=== PATIENT | female | born 1970 | race Caucasian/White ===

== ENCOUNTER → 2017-09-09 15:47 | Outpatient (CLI) | payer OTHER, SELFPAY | PROVIDERS: Visit Provider Otolaryngology Otolaryngology/Facial Plastic Surgery | DX: J32.9 Chronic sinusitis, unspecified (principal) | CPT/HCPCS: 87070; 87205 ==

== ENCOUNTER → 2018-03-10 09:48 | Outpatient (CLI) | payer OTHER, SELFPAY ==
[2018-03-10 12:23] LABS: Free T3 2.5 pg/mL (2.18-3.98); Progesterone Level 0.18 ng/mL (See Comment); T4 Free Direct 0.89 ng/dL (0.76-1.46); Thyroid Stim Hormone (TSH) 2.21 uIU/mL (0.358-3.74)
[2018-03-10 12:32] LABS: Hemoglobin A1c 5.7 % (4.2-6.3)
[2018-03-11 04:08] LABS: DHEA Sulfate 50.9 ug/dL (41.2-243.7)
[2018-03-11 11:32] LABS: Sex Hormone-binding Globulin 96.3 nmol/L (24.6-122.0)
== END ==
PROVIDERS: Family Provider Internal Medicine; PCP Internal Medicine; Referring Provider Obstetrics & Gynecology; Visit Provider Obstetrics & Gynecology
DX: Z78.0 Asymptomatic menopausal state (principal); N95.0 Postmenopausal bleeding
CPT/HCPCS: 36415; 82533; 82627; 82670; 83036; 84144; 84270; 84403; 84439; 84443; 84481; 82626

== ENCOUNTER → 2018-03-13 08:26 | Outpatient (CLI) | payer OTHER, SELFPAY ==
--- NOTE | 2018-03-13 08:32 | RAD_ITS ---
STUDY: X-RAY CHEST REASON FOR EXAM: Female, 47 years old. Dyspnea TECHNIQUE: Frontal and lateral views of the chest. COMPARISON: None. FINDINGS: The lungs are clear and expanded. There is no demonstrated pleural abnormality. Normal size heart. Normal mediastinum and iker. Normal visualized pulmonary arteries. Normal visualized aortic arch and descending thoracic aorta. Normal visualized thoracic spine. Normal visualized ribs, clavicles, and shoulders. There is no demonstrated abnormality of the visualized soft tissue structures of the upper abdomen. RAD/Chest PA and Lateral IMPRESSION: Normal x-ray examination of the chest. Electronically Signed: Ventura Felix MD at 15:19 EDT Tel , Service support ,
== END ==
PROVIDERS: Family Provider Internal Medicine; PCP Internal Medicine; Referring Provider Internal Medicine; Visit Provider Internal Medicine
DX: R06.02 Shortness of breath (principal)
CPT/HCPCS: 71046

== ENCOUNTER → 2018-04-03 12:13 | Outpatient (CLI) | payer OTHER, SELFPAY ==
--- NOTE | 2018-04-03 12:15 | BI_ITS ---
MAMMOGRAPHY - BILATERAL SCREENING REASON FOR EXAM: Female, 47 years old. Routine annual screening examination. PERTINENT HISTORY: Non-contributory. TECHNIQUE: Digital bilateral breast torres (3D mammographic acquisition) in the CC and MLO projections. 2-D mediolateral oblique (MLO) and craniocaudad (CC) views of both breasts were obtained. CAD: Full Field Digital Mammography with Computer Added Detection was performed. COMPARISON: Comparison is made with prior study dated March 31, 2017 and November 08, 2015. FINDINGS: Breast Composition: The breasts are heterogeneously dense, which may obscure small masses. There are no dominant masses or suspicious calcifications. Stable small bilateral axillary lymph nodes. No other significant abnormalities are identified. There has been no significant change since the prior study. BI/SCREENING MAMM (CAD), BILAT IMPRESSION: Stable bilateral screening mammogram. Yearly follow-up mammogram recommended. (A) ASSESSMENT CATEGORY: BIRADS Category 2: Benign. A letter regarding these results will be sent to the patient by the facility within 30 days. Approximately 10% of breast cancers are not detected by mammography. A normal mammogram should not delay biopsy of a clinically suspicious abnormality. [id number] Electronically Signed: Kai Barksdale MD at 13:42 EDT Tel [phone], Service support ,
== END ==
PROVIDERS: Family Provider Internal Medicine; PCP Internal Medicine; Referring Provider Internal Medicine; Visit Provider Internal Medicine
DX: Z12.31 Encounter for screening mammogram for malignant neoplasm of breast (principal)
CPT/HCPCS: 77063; 77067

== ENCOUNTER → 2018-06-26 13:37 | Outpatient (CLI) | payer SELFPAY ==
--- NOTE | 2018-06-26 13:48 | CT_ITS ---
STUDY: CT CHEST WITHOUT CONTRAST REASON FOR EXAM: Female, 48 years old. Hyperlipidemia. Calcium scoring exam. Radiological over read examination. RADIATION DOSAGE (If Supplied By Facility): CTDIvol = ( 12.19 ) mGy, DLP = ( 195.04 ) mGycm TECHNIQUE: Transaxial imaging was performed without the administration of intravenous contrast material. Individualized dose optimization techniques were used for this CT. COMPARISON: None. FINDINGS: The lungs are normal. There is no demonstrated pleural abnormality. Normal heart and pericardium. There are multiple small lymph nodes within the mediastinum, which are normal in size and morphology most compatible with reactive lymph hyperplasia. Normal hilar regions. Normal unenhanced pulmonary arteries. Normal aorta arch and descending thoracic aorta. Normal osseous structures. There is no demonstrated abnormality of the visualized upper abdomen. CT/Limited Chest CT w/CCTA IMPRESSION: Normal unenhanced CT Chest examination. Electronically Signed: Kai Barksdale MD at 15:06 EST Tel [phone], Service support ,
[2018-06-26 13:59] VITALS: BP 143/82; PULSE 69; RESP 18; O2SAT 97; BMI 34.0
--- NOTE | 2018-06-26 15:03 | CA.SCORE ---
Calcium Scoring Date of Study:: 06/26/18 Coronary Calcium Scoring: Coronary calcium scoring. High-resolution computed tomographic imaging of the chest was performed on 06/26/2018 with particular attention paid to the coronary arteries. Images from the examination were analyzed for the presence and extent of coronary artery calcification using the coronary calcium quantification software. The patient tolerated the procedure well and there were no complications. The results of the coronary calcification analysis were provided below along with [employer] sales representative cross-sectional images from the examination. Coronary artery score. Left main score of 0. Left anterior descending artery score 0. Left circumflex artery score 0. Right coronary artery score 0. Total calcium Agagston score 0. Interpretation: The above is indicative of minimal to no identifiable atherosclerotic plaquing.
--- OUTSIDE RECORDS SUMMARY | 2018-08-31 03:28 | XMS RPT_ITS | Continuity of Care Document ---
:1970 Author Organization [facility] Address [address] [facility] [address] [place] [address] Phone Care Team Providers Name Role Phone Cristy Escobedo MD Unavailable Dr. Adela Buckley MD Unavailable Chayito Rodrigueza Unavailable Unavailable Unavailable Unavailable Problems Name Dates Details Abnormal fasting glucose (R73.01, 790.29) Status: Active Bilateral hearing loss, unspecified hearing loss type (H91.93, 389.9) Comments: had since young wear hearing aides. Status: Active BMI 32.0-32.9,adult (Z68.32, V85.32) Status: Active BMI 33.0-33.9,adult (Z68.33, V85.33) Status: Active BMI 34.0-34.9,adult (Z68.34, V85.34) Status: Active Encounter for routine adult medical exam with abnormal findings (Renamed from Encounter for preventative adult health care exam with abnormal findings) (Z00.01, V70.0) Comments: [facility]-19 dental exam yearly, eye exam regularly, mammo 10-18. 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 wellbutrin help mood not help appetite. added naltrexone not take because so sick of contrave. do adipex for 3motnhs because work but gain back wieg ht in 3 months not enough time for lifestyle changend drop out exericse. Status: Active Other chronic sinusitis (J32.8, 473.8) Status: Active SOB (shortness of breath) (R06.02, 786.05) Comments: weird signs and symptoms vague start cxr not sound cardiac told signs and symptoms to ER Status: Active Stress reaction (Renamed from Acute reaction to stress) (F43.0, 308.9) Comments: right now doing sukhjinder mckenzie son diong better with anxiety Status: Active Vitamin D deficiency (E55.9, 268.9) Status: Active Weight gain (R63.5, 783.1) Comments: stop the large pulp Status: Active Medications Name Dates Details Crestor 20 MG Oral Tablet 1 (one) Tablet in am for 0 days Quantity: 90 {Tablet} Refills: 3 Ordered:23-Feb-2018 Gregg SPRINGER, Cristy Coker MD, Cristy Guerrero Start : 23-Feb-2018 Active Inderal LA 60 MG Oral Capsule Extended Release 24 Hour 1 (one) Capsule Capsule in am for 0 days Quantity: 30 {Capsule} Refills: 3 Ordered:19-Mar-2017 NORAH Dale Start : 19-Mar-2017 Active Prometrium 100 MG Oral Capsule 3 caps once a day at bedtime (100 MG) Active Comments:Dr. Ina Ellis 18 MG/3ML Subcutaneous Solution Pen-injector 1 (one) Milligram Milligram 0.6 mg SC daily for 1 week then 1.2 mg SC daily for 0 days Quantity: 1 {Syringe} Refills: 3 Ordered:12-Mar-2018 Edyta Rodriguez Start : 12-Mar-2018 Active Comments:with needles Vitamin D3 Super Strength 2000 UNIT Oral Capsule 1 (one) Capsule Capsule in am for 0 days Quantity: 30 {Capsule} Refills: 0 Ordered:24-Apr-2017 NORAH Dale Start : 19-Mar-2017 Active Wellbutrin XL 150 MG Oral Tablet Extended Release 24 Hour 1 (one) Tablet in am for 0 days Quantity: 30 {Tablet} Refills: 2 Ordered:14-Oct-2017 Gregg SPRINGER, Cristy Gonzales MD Start : 14-Oct-2017 Active Wellbutrin XL 150 MG Oral Tablet Extended Release 24 Hour 1 (one) Tablet in am for 0 days Quantity: 90 {Tablet} Refills: 3 Ordered:14-Oct-2017 Cristy Escobedo MD, MD, Dana M Start : 14-Oct-2017 Active Naltrexone HCl 50 MG Oral Tablet 1 (one) Tablet start 1/4 tablet at night for 5 days then bid then increase by 1/4 every 5 days to 1/2 bid for 0 days Quantity: 30 {Tablet} Refills: 1 Ordered:23-Dec-2017 NORAH Dale Start : 14-Oct-2017 End : 23-Dec-2017 Inactive Phentermine HCl 37.5 MG Oral Tablet 1 (one) Tablet in am for 0 days Quantity: 30 {Tablet} Refills: 0 Ordered:12-Mar-2018 NORAH Dale Start : 23-Dec-2017 End : 12-Mar-2018 Inactive Comments:thirtyBMI: 34.33 Allergies and Adverse Reactions Name Dates Details Penicillin V Potassium *PENICILLINS* Status: Active (Allergy) Comments: states it is a family allergy she has never used it Past Medical History Name Dates Details BMI 31.0-31.9,adult (Z68.31, V85.31) Status: Resolved as of 12-Mar-2018 BMI 32.0-32.9,adult (Z68.32, V85.32) Status: Resolved as of 15-Jun-2018 Encounter for screening mammogram for breast cancer (Renamed from Encounter for screening mammogram for malignant neoplasm of breast) (Z12.31, V76.12) Status: Resolved as of 26-May-2017 [place] (R23.2, 782.62) Status: Resolved as of 14-Oct-2017 Procedures Date Value Details 26-Jun-[address] w/CCTA Result: Comments: See Note; NOTES: [facility] Imaging Services [address] [place] [address] w/CCTA MR#: [id number] Acct: [id number] Name: DU SWANSON Rep #: [id number] : 1970 F 48 From: Kai Barksdale MD PCP: Cristy Escobedo MD Status: REG CLI Study: Limited Chest CT w/CCTA Date of Exam: 06/26/18 Exam# [id number] Ordering Dr: Cristy Escobedo MD STUD Y: CT CHEST WITHOUT CONTRAST REASON FOR EXAM: Female, 48 years old. Hyperlipidemia. Calcium scoring exam. Radiological over read examination. RADIATION DOSAGE (If Supplied By Facility): CTDIvol = ( 12 .19 ) mGy, DLP = ( 195.04 ) mGycm TECHNIQUE: Transaxial imaging was performed without the administration of intravenous contrast material. Individualized dose optimization techniques were used for thi s CT. COMPARISON: None. FINDINGS: The lungs are normal. There is no demonstrated pleural abnormality. Normal heart and pericardium. There are multiple small lymp h nodes within the mediastinum, which are normal in size and morphology most compatible with reactive lymph hyperplasia. Normal hilar regions. Normal unenhanced pulmonary arteries. Normal aorta arch and descending thoracic aorta. Normal osseous structures. There is no demonstrated abnormality of the visualized upper abdomen. CT/Limited Chest C T w/CCTA IMPRESSION: Normal unenhanced CT Chest examination. Electronically Signed: Kai Barksdale MD at 15:06 EST Tel [phone], Service support , CC: Cristy Escobedo MD Tool Room Attendant: Signed 22-Jun-2018 TXT - Blood Flow Screening Result: Comments: See Note; NOTES: [facility] Cardiovascular Services [address] [place] [address] 06/22/1805 MR#: [id number] Acct: [id number] Name: DU SWANSON Rep #: [id number] : 1970 48 From: Hernando Krishnan MD Attending Dr: Cristy Escobedo MD Status: REG REF Ordering Dr: Date: 06/22/18 Location: [facility] Sex: F C Admitted: Reason For Study: Blood Flow Screening C arotid Duplex Ultrasound Abdominal Aorta The right maximum ICA velocity is 106/39.3 cm/s. The maximal outside diameter of the proximal aorta The left maximum ICA velocity is 99.8/37.7 cm/s. measures 1.4 6 cm in the longitudinal axis. The right ECA velocity is less than 125 cm/s. The maximal outside diameter of the proximal aorta The left ECA velocity is less than 125 cm/s. measures 1.58 x 1.42 cm in th e cross-sectional There is no plaque formation noted on the right axis. side. There is no plaque formation noted on the left side. Ankle Brachial Index The right ankle/ brachial index is 1.05. The left ankle/ brachial index is 1.02. Medical History and Assessment The heart rate is 66 beats per minute. The heart rhythm is regular. The right blood pressure is 110/74. The left blood pressure is 110/76 . The assessment was performed by Kyle Cantrell RVT. Interpretation Summary Normal carotid artery screening (0 to 15% narrowing). Normal aortic ultrasound exam. The ankle/brachial index is normal (1.0 o r greater). Ordering Physician: Cristy Escobedo M.D. Performed By: Óscar NATHAN, Terese udent 06/22/182123 Date Hernando Krishnan MD CC: Cristy Escobedo MD Date Dictated: 804 Date Transcribed: 06/22/182123 Tool Room Attendant: Signed 22-Jun-2018 TXT - Blood Flow Screening Result: Comments: See Note; NOTES: [facility] Cardiovascular Services [address] [place] [address] 06/22/18804 MR#: [id number] Acct: [id number] Name: DU SWANSON Rep #: [id number] : 1970 48 From: Hernando Krishnan MD Attending Dr: Cristy Escobedo MD Status: REG REF Ordering Dr: Date: 06/22/18 Location: [facility] Sex: F C Admitted: Reason For Study: Blood Flow Screening C arotid Duplex Ultrasound Abdominal Aorta The right maximum ICA velocity is 106/39.3 cm/s. The maximal outside diameter of the proximal aorta The left maximum ICA velocity is 99.8/37.7 cm/s. measures 1.4 6 cm in the longitudinal axis. The right ECA velocity is less than 125 cm/s. The maximal outside diameter of the proximal aorta The left ECA velocity is less than 125 cm/s. measures 1.58 x 1.42 cm in th e cross-sectional There is no plaque formation noted on the right axis. side. There is no plaque formation noted on the left side. Ankle Brachial Index The right ankle/ brachial index is 1.05. The left ankle/ brachial index is 1.02. Medical History and Assessment The heart rate is 66 beats per minute. The heart rhythm is regular. The right blood pressure is 110/74. The left blood pressure is 110/76 . The assessment was performed by Kyle Cantrell RVT. Interpretation Summary Normal carotid artery screening (0 to 15% narrowing). Normal aortic ultrasound exam. The ankle/brachial index is normal (1.0 o r greater). Ordering Physician: Cristy Escobedo M.D. Performed By: Emy Cantrell RVT and St pond 06/22/182123 Date Hernando Krishnan MD CC: Cristy Escobedo MD Date Dictated: 804 Date Transcribed: 06/22/182123 Tool Room Attendant: Signed 03-Apr-2018 SCREENING MAMM (CAD), BILAT Result: Comments: See Note; NOTES: [facility] Imaging Services [address] [place] [address] SCREENING MAMM (CAD), BILAT MR#: [id number] Acct: [id number] Name: DU SWANSON Rep #: [id number] : 1970 F 47 From: Kai Barksdale MD PCP: Cristy Escobedo MD Status: REG CLI Study: SCREENING MAMM (CAD), BILAT Date of Exam: 04/03/18 Exam# [id number] Ordering Dr: Cristy Escobedo MAMMOGRAPHY - BILATERAL SCREENING REASON FOR EXAM: Female, 47 years old. Routine annual screening examination. PERTINENT HISTORY: Non-contributory. TECHNIQUE: Digital bilateral breast torres (3D ma mmographic acquisition) in the CC and MLO projections. 2-D mediolateral oblique (MLO) and craniocaudad (CC) views of both breasts were obtained. CAD: Full Field Digital Mammography with Computer Added D etection was performed. COMPARISON: Comparison is made with prior study dated March 31, 2017 and November 08, 2015. FINDINGS: Breast Composition: The breasts are heter ogeneously dense, which may obscure small masses. There are no dominant masses or suspicious calcifications. Stable small bilateral axillary lymph nodes. No other significant abnormalities are identif ied. There has been no significant change since the prior study. BI/SCREENING MAMM (CAD), BILAT IMPRESSION: Stable bilateral screening mammogram. Yearly follow-up mammogram recommended. (A) ASSESSMENT CATEGORY: BIRADS Category 2: Benign. A letter regarding these results will be sent to the patient by the fac ility within 30 days. Approximately 10% of breast cancers are not detected by mammography. A normal mammogram should not delay biopsy of a clinically suspicious abnormality. [id number] Electronically Sig adela: Kai Barksdale MD at 13:42 EDT Tel [phone], Service support , CC: Cristy Escobedo MD Tool Room Attendant: Signed 13-Mar-2018 Chest PA and Lateral Result: Comments: See Note; NOTES: [facility] Imaging Services [address] [place] [address] Chest PA and Lateral MR#: [id number] Acct: [id number] Name: DU SWANSON Rep #: [id number] : 1970 F 47 From: Ventura Felix MD PCP: Cristy Escobedo MD Status: REG CLI Study: Chest PA and Lateral Date of Exam: 03/13/18 Exam# [id number] Ordering Dr: Cristy Escobedo MD STUDY: X-RAY CH EST REASON FOR EXAM: Female, 47 years old. Dyspnea TECHNIQUE: Frontal and lateral views of the chest. COMPARISON: None. FINDINGS: The lungs are clear and expande d. There is no demonstrated pleural abnormality. Normal size heart. Normal mediastinum and iker. Normal visualized pulmonary arteries. Normal visualized aortic arch and descending thoracic aorta. Norm al visualized thoracic spine. Normal visualized ribs, clavicles, and shoulders. There is no demonstrated abnormality of the visualized soft tissue structures of the upper abdomen. RAD/Chest PA and Lateral IMPRESSION: Normal x-ray examination of the chest. Electronically Signed: Ventura Felix MD at 15:19 EDT Tel , Serv ice support , CC: Cristy Escobedo MD Tool Room Attendant: Signed 31-Mar-2017 SCREENING MAMM (CAD), BILAT Result: Comments: See Note; NOTES: [facility] Imaging Services [address] [place] [address] SCREENING MAMM (CAD), BILAT MR#: [id number] Acct: [id number] Name: DU SWANSON Rep # : [id number] : 1970 F 46 From: Kai Barksdale MD PCP: Cristy Escobedo MD Status: REG CLI Study: SCREENING MAMM (CAD), BILAT Date of Exam: 03/31/17 Exam# [id number] Ordering Dr: Cristy Escobedo MD MAMMOGRAPHY - BILATERAL SCREENING REASON FOR EXAM: Female, 46 years old. Routine annual screening examination. PERTINENT HISTORY: Non-contributory. TECHNIQUE: Digital bilateral breast torres (3D beckie mographic acquisition) in the CC and MLO projections. 2-D mediolateral oblique (MLO) and craniocaudad (CC) views of both breasts were obtained. CAD: Full Field Digital Mammography with Computer Added De tection was performed. COMPARISON: Comparison is made with prior study dated November 08, 2015 and July 21, 2014. FINDINGS: Breast Composition: The breasts are heter ogeneously dense, which may obscure small masses. There are no dominant masses or suspicious calcifications. Stable benign-appearing bilateral axillary lymph nodes. No other significant abnormalities are identified. There has been no significant change since the prior study. HPBI/SCREENING MAMM (CAD), BILAT IMPRESSION: Stable bilateral screeni ng mammogram. Yearly follow-up mammogram recommended. (A) ASSESSMENT CATEGORY: BIRADS Category 2: Benign. A letter regarding these results will be sent to the [facility] nt by the facility within 30 days. Approximately 10% of breast cancers are not detected by mammography. A normal mammogram should not delay biopsy of a clinically suspicious abnormality. [id number] Elect ronically Signed: Kai Barksdale MD at 9:54 EDT Tel [phone], Service support , CC: Cristy Escobedo MD Tool Room Attendant: Signed Family History Unknown Family Member Name Dates Details Father Comments: at 55 yo unknown estranged. 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 [place] in [place] area Status: Active Vital Signs Date Test Result Details :09 Weight 201.05 lb Height 64 in Body Mass Index Calculated 34.51 kg/m2 Body Surface Area Calculated 1.96 m2 :12 Temperature 97.8 f Comments: Method: Temporal Pulse 92 /min Comments: Pattern: Regular Respiration Rate 16 /min Comments: Pattern: Unlabored O2 SAT 97 % Comments: Room air BP Systolic 122 mm[Hg] Comments: Patient Position: Sitting; Cuff Location: Left Arm; Cuff Size: Standard BP Diastolic 78 mm[Hg] Comments: Patient Position: Sitting; Cuff Location: Left Arm; Cuff Size: Standard Weight 200.5 lb Height 64 in Body Mass Index Calculated 34.42 kg/m2 Body Surface Area Calculated 1.96 m2 :16 Temperature 97.9 f Comments: Method: Temporal Pulse 74 /min Comments: Pattern: Regular Respiration Rate 20 /min Comments: Pattern: Unlabored O2 SAT 98 % Comments: Room air BP Systolic 122 mm[Hg] Comments: Patient Position: Sitting; Cuff Location: Left Arm; Cuff Size: Standard BP Diastolic 78 mm[Hg] Comments: Patient Position: Sitting; Cuff Location: Left Arm; Cuff Size: Standard Weight 200 lb Height 64 in Body Mass Index Calculated 34.33 kg/m2 Body Surface Area Calculated 1.96 m2 :13 Temperature 97.6 f Comments: Method: Temporal Pulse 76 /min Comments: Pattern: Regular Respiration Rate 20 /min Comments: Pattern: Unlabored O2 SAT 98 % Comments: Room air BP Systolic 120 mm[Hg] Comments: Patient Position: Sitting; Cuff Location: Left Arm; Cuff Size: Standard BP Diastolic 80 mm[Hg] Comments: Patient Position: Sitting; Cuff Location: Left Arm; Cuff Size: Standard Weight 200 lb Height 64 in Body Mass Index Calculated 34.33 kg/m2 Body Surface Area Calculated 1.96 m2 :27 Temperature 97.6 f Comments: Method: Temporal Pulse 76 /min Comments: Pattern: Regular Respiration Rate 20 /min Comments: Pattern: Unlabored O2 SAT 98 % Comments: Room air BP Systolic 112 mm[Hg] Comments: Patient Position: Sitting; Cuff Location: Left Arm; Cuff Size: Standard BP Diastolic 72 mm[Hg] Comments: Patient Position: Sitting; Cuff Location: Left Arm; Cuff Size: Standard Weight 196 lb Height 64 in Body Mass Index Calculated 33.64 kg/m2 Body Surface Area Calculated 1.94 m2 :51 Temperature 96.9 f Pulse 71 /min Comments: Pattern: Regular Respiration Rate 18 /min Comments: Pattern: Unlabored O2 SAT 98 % Comments: Room air BP Systolic 118 mm[Hg] Comments: Patient Position: Sitting; Cuff Location: Left Arm; Cuff Size: Standard BP Diastolic 70 mm[Hg] Comments: Patient Position: Sitting; Cuff Location: Left Arm; Cuff Size: Standard Weight 191.5 lb Height 64 in Body Mass Index Calculated 32.87 kg/m2 Body Surface Area Calculated 1.92 m2 :29 Temperature 97.6 f Comments: Method: Temporal Pulse 78 /min Comments: Pattern: Regular Respiration Rate 20 /min Comments: Pattern: Unlabored O2 SAT 98 % Comments: Room air BP Systolic 110 mm[Hg] Comments: Patient Position: Sitting; Cuff Location: Left Arm; Cuff Size: Standard BP Diastolic 74 mm[Hg] Comments: Patient Position: Sitting; Cuff Location: Left Arm; Cuff Size: Standard Weight 187 lb Height 64 in Body Mass Index Calculated 32.1 kg/m2 Body Surface Area Calculated 1.9 m2 :15 Temperature 97.6 f Comments: Method: Temporal Pulse 74 /min Comments: Pattern: Regular Respiration Rate 20 /min Comments: Pattern: Unlabored O2 SAT 98 % Comments: Room air BP Systolic 120 mm[Hg] Comments: Patient Position: Sitting; Cuff Location: Left Arm; Cuff Size: Standard BP Diastolic 78 mm[Hg] Comments: Patient Position: Sitting; Cuff Location: Left Arm; Cuff Size: Standard Weight 186 lb Height 64 in Body Mass Index Calculated 31.93 kg/m2 Body Surface Area Calculated 1.9 m2 :20 Temperature 97.1 f Comments: Method: Oral Pulse 64 /min Comments: Pattern: Regular Respiration Rate 18 /min O2 SAT 95 % Comments: Room air BP Systolic 118 mm[Hg] Comments: Patient Position: Sitting BP Diastolic 78 mm[Hg] Comments: Patient Position: Sitting Weight 193 lb Height 64 in Body Mass Index Calculated 33.13 kg/m2 Body Surface Area Calculated 1.93 m2 Results Date Description Value Details :24 MICROALBUMIN: CREATININE RATIO Comments: PATIENT WAS FASTINGPERFORMED BY: [facility] [id number] [facility] [id number] ([id number]) AND ([id number]) Alb/Creat Ratio 2.3 {mg/g_creat} (Normal) Range: 0.0-30.0 Comments: Normal: 0.0 - 30.0 Albuminuria: 31.0 - 300.0 Clinical albuminuria: >300.0 Albumin, Urine 3.3 ug/mL (Normal) Creatinine, Urine 145.2 mg/dL (Normal) [id number]:24 URINALYSIS ([id number]) Comments: PATIENT WAS FASTINGPERFORMED BY: [id number] [facility] [id number] Microscopic Examination MICNIP (Normal) Comments: Microscopic not indicated and not performed. Nitrite, Urine Negative (Normal) Urobilinogen,Semi-Qn 0.2 mg/dL (Normal) Range: 0.2-1.0 Bilirubin Negative (Normal) Occult Blood Negative (Normal) Ketones Negative (Normal) Glucose Negative (Normal) Protein Negative (Normal) WBC Esterase Negative (Normal) Appearance Clear (Normal) Urine-Color Yellow (Normal) pH 7.0 (Normal) Range: 5.0-7.5 Specific [place] 1.021 (Normal) Range: 1.005-1.030 [id number] CBC WITH MANUAL DIFF Comments: PATIENT WAS FASTINGPERFORMED BY: [facility] [id number] [facility] [id number] Information: NURSE DRAW ([id number]) Immature Grans (Abs) 0.0 {x10E3/uL} (Normal) Range: 0.0-0.1 Immature Granulocytes 0 % (Normal) Baso (Absolute) 0.0 {x10E3/uL} (Normal) Range: 0.0-0.2 Eos (Absolute) 0.3 {x10E3/uL} (Normal) Range: 0.0-0.4 Monocytes(Absolute) 0.6 {x10E3/uL} (Normal) Range: 0.1-0.9 Lymphs (Absolute) 2.4 {x10E3/uL} (Normal) Range: 0.7-3.1 Neutrophils (Absolute) 5.2 {x10E3/uL} (Normal) Range: 1.4-7.0 Basos 0 % (Normal) Eos 3 % (Normal) Monocytes 7 % (Normal) Lymphs 28 % (Normal) Neutrophils 62 % (Normal) Platelets 326 {x10E3/uL} (Normal) Range: 150-379 RDW 13.3 % (Normal) Range: 12.3-15.4 MCHC 33.3 g/dL (Normal) Range: 31.5-35.7 MCH 28.7 pg (Normal) Range: 26.6-33.0 MCV 86 fL (Normal) Range: 79-97 Hematocrit 40.3 % (Normal) Range: 34.0-46.6 Hemoglobin 13.4 g/dL (Normal) Range: 11.1-15.9 RBC 4.67 {x10E6/uL} (Normal) Range: 3.77-5.28 WBC 8.5 {x10E3/uL} (Normal) Range: 3.4-10.8 [id number]:24 Metabolic Panel, Comprehensive Comments: PATIENT WAS FASTINGPERFORMED BY: [facility] [id number] [facility] [id number] ([id number]) ALT (SGPT) 18 [iU]/L (Normal) Range: 0-32 AST (SGOT) 21 [iU]/L (Normal) Range: 0-40 Alkaline Phosphatase 79 [iU]/L (Normal) Range: 39-117 Bilirubin, Total 0.3 mg/dL (Normal) Range: 0.0-1.2 A/G Ratio 1.6 (Normal) Range: 1.2-2.2 Globulin, Total 2.7 g/dL (Normal) Range: 1.5-4.5 Albumin 4.3 g/dL (Normal) Range: 3.5-5.5 Protein, Total 7.0 g/dL (Normal) Range: 6.0-8.5 Calcium 9.4 mg/dL (Normal) Range: 8.7-10.2 Carbon Dioxide, Total 21 mmol/L (Normal) Range: 20-29 Chloride 106 mmol/L (Normal) Range: 96-106 Potassium 4.7 mmol/L (Normal) Range: 3.5-5.2 Sodium 140 mmol/L (Normal) Range: 134-144 BUN/Creatinine Ratio 19 (Normal) Range: 9-23 eGFR If Africn Am 106 mL/min/1.73 (Normal) eGFR If NonAfricn Am 92 mL/min/1.73 (Normal) Creatinine 0.77 mg/dL (Normal) Range: 0.57-1.00 BUN 15 mg/dL (Normal) Range: 6-24 Glucose 102 mg/dL (Abnormal) Range: 65-99 2-Oct-64524:54 CORTISOL SERUM Comments: BASELINE OR POST MEDICATION STIMULATION?: [facility] [address] [place], [place], [id number] CORTISOL 11.00 ug/dL (Normal) Range: 3.09-22.40 Comments: Adult (AM) 4.30 - 22.40 ug/dL Adult (PM) 3.09 - 16.66 ug/dL :54 DHEA Sulfate Comments: Has Patient had Radioactive Injection for X-ray?: [facility] (refer to report for specific site)refer to report for address and phone number DHEA SULF 4020 50.9 ug/dL (Normal) Range: 41.2-243.7 :54 Estradiol Comments: [facility] [id number] [place], [place], [id number] ESTRADIOL 452.0 pg/mL (Normal) Comments: NORMAL REFERENCE RANGES FEMALE FOLLICULAR 21.4 - 164.8 pg/mL MID-CYCLE PEAK 49.9 - 367.2 pg/mL LUTEAL 40.2 - 259.0 pg/mL POST-MENOPAUSAL ON MHT <11.0 - 462.1 pg/mL NOT ON MHT <11.0 - 58.3 pg/mL MALE <11.0 - 52 .5 pg/mLNOTE:[employer] HAS CONFIRMED THE DRUG FULVETRANT (FASLODEX) MAYCAUSE FALSELY ELEVATED ESTRADIOL RESULTS WHEN USING THISTEST METHOD. IF PATIENT IS TAKING FULVESTRANT AN ALTERNATIVEMETHOD SHOULD BE USED TO DETERMINE ESTRADIOL CONCENTRATION. :54 Free T3 Comments: [facility] [id number] [place], [place], [phone] FREE T3 2.5 pg/mL (Normal) Range: 2.18-3.98 :54 Hemoglobin A1c Comments: [facility] [id number] [place], [address] HGB A1C 5.7 % (Normal) Range: 4.2-6.3 :54 Progesterone Level Comments: BASELINE OR POST MEDICATION STIMULATION?: [facility] [facility] [place] [id number] [facility] [place], [id number] Progesterone 0.18 ng/mL (Normal) Comments: Progesterone Reference Table: UNITS Female: Follicular 0.15 - 1.40 ng/mL Luteal 3.34 - 25.56 ng/mL Mid-luteal 4.44 - 28.03 ng/mL Postmenopausal 0.0 - 0.73 ng/mL : 1st Trimester 11.22 - 90.00 ng /mL 2nd Trimester 25.55 - 89.40 ng/mL 3rd Trimester 48.40 -422.50 ng/mL :54 Sex Hormone-binding Globulin Comments: Has Patient had Radioactive Injection for X-ray?: [facility] (refer to report for specific site)refer to report for address and phone number SHBG 96.3 nmol/L (Normal) Range: 24.6-122.0 Comments: Performed at: [address] [id number] Director: Mahendra Duarte PhD, Phone: [phone] :54 T4 Free Direct Comments: [facility] [id number] [facility]. [place], [place], [id number] T4 FREE DIRECT 0.89 ng/dL (Normal) Range: 0.76-1.46 :54 Testosterone, Serum Total Comments: BASELINE OR POST MEDICATION STIMULATION?: [facility] [place] [id number] [place], [place], [id number] Testosterone 19.84 ng/dL (Normal) Comments: NORMAL REFERENCE RANGES MALE AGE <50 123.06 - 813.86 ng/dL MALE AGE >50 89.98 - 780.10 ng/dL FEMALE PREMENOPAUSE AGE 21 - 60 9.01 - 47.94 ng/dL FEMALE POSTMENOPAUSE AGE 45 - 89 <7.00 - 45.62 ng/dL REFERENCE RANGE AND METHODOLOGY CHANGED 05/28/201710-Mar-20189:54 Thyroid Stim Hormone (TSH) Comments: [facility] [id number] [place], [place], [phone] TSH 2.21 {uIU/mL} (Normal) Range: 0.358-3.74 4-Zlb-767899:40 TSH (THYROID STIMULATING Comments: PATIENT NOT FASTINGPERFORMED BY: [facility] [id number] HORMONE) ([id number]) TSH 1.640 {uIU/mL} (Normal) Range: 0.450-4.500 3-Tlv-148843:40 ESTRADIOL ([id number]) Comments: PATIENT NOT FASTINGPERFORMED BY: [facility] [id number] Estradiol <5.0 pg/mL (Normal) Comments: Adult Female: Follicular phase 12.5 - 166.0 Ovulation phase 85.8 - 498.0 Luteal phase 43.8 - 211.0 Postmenopausal <6.0 - 54.7 1st trimester 215.0 - & gt;4300.0 Girls (1-10 years) 6.0 - 27.0Roche ECLIA methodology 3-Ucc-056416:40 PROLACTIN ([id number]) Comments: PATIENT NOT FASTINGPERFORMED BY: [facility] [id number] Prolactin 9.0 ng/mL (Normal) Range: 4.8-23.3 5-Fjv-489333:40 HCG Qualitative, Serum (31660) Comments: PATIENT NOT FASTINGPERFORMED BY: [facility] [id number] hCG,Beta Subunit,Qual,Serum Negative m[iU]/mL (Normal) 0-Ftb-192943:40 FSH AND LH ([id number]) Comments: PATIENT NOT FASTINGPERFORMED BY: [facility] [id number] FSH 90.2 m[iU]/mL (Normal) Comments: Adult Female: Follicular phase 3.5 - 12.5 Ovulation phase 4.7 - 21.5 Luteal phase 1.7 - 7.7 Postmenopausal 25.8 - 134.8 LH 58.0 m[iU]/mL (Normal) Comments: Adult Female: Follicular phase 2.4 - 12.6 Ovulation phase 14.0 - 95.6 Luteal phase 1.0 - 11.4 Postmenopausal 7.7 - 58.5 09-Sep-20179:15 Culture, Nose Comments: [facility] [id number] [place], [address] CUN See Note (Normal) Comments: Gram StainGram Stain No White Blood Cells No organisms seen Nasoph. CultNo growth in 48 hours. Plan of Care Name Dates Details Instructions Encounter for routine adult medical exam with abnormal findings (Renamed from Encounter for preventative adult health care exam with abnormal findings) : Eprescribed prescriptions (G8553) Indication: Encounter for routine adult medical exam with abnormal findings (Renamed from Encounter for preventative adult health care exam with abnormal findings) Nonsmoker : Eprescribed prescriptions (G8553) Indication: Nonsmoker Encounter for routine adult medical exam with abnormal findings (Renamed from Encounter for preventative adult health care exam with abnormal findings) : Eprescribed prescriptions (G8553) Indication: Encounter for routine adult medical exam with abnormal findings (Renamed from Encounter for preventative adult health care exam with abnormal findings) Planned Observations LIPOPROTEIN, BLD, BY NMR ([id number])Indication: Hypercholesteremia On: 19-Mox-782622:54 Request HEPATIC FUNCTION PANEL ([id number])Indication: Hypercholesteremia On: 39-Qbb-317147:54 Request CALCIFIDIOL ([id number]) VIT D 25Indication: Vitamin D deficiency On: 28-Xjz-094065:45 Request Planned Encounters Medical; INGEP Weight Check - On: 10-Jul-2018 9:00 [facility] NORAH Dale; ARACELI 6 Week FU - On: 24-Jul-2018 9:00 [facility] Gregg SPRINGER, Cristy Mauricio MD Medical; VIP Weight Check - On: 07-Aug-2018 9:00 [facility] NORAH Dale Planned Procedures TDAP VACCINE >7 IM ([id number])By: Gregg On: 12-Jun-2018 Intent Cristy SPRINGER MD, Dana M Comments: 0.5 cc given im lt dltd lot [id number] exp 03/13/19 MAMMOGRAM BREAST BILATERAL SCREENING On: 16-Mar-2018 Intent DIGITAL ([id number])By: Cristy Escobedo MD, MD, Dana M CHEST XRAY, PA & LATERAL ([id number])By: On: 12-Mar-2018 Intent Cristy Escobedo MD, MD, Cristy M Flu Vaccine (Quadrivalent) 09776Zf: On: 12-Mar-2018 Intent Cristy Escobedo MD, MD, Dana M Comments: Lot #:[id number] date: 3-78-10Inbdpq given:0.5mlRoute: IMSite given:L DltdGiven by: Dana and JOCELYNE signed [employer] SCREENING DIGITAL TOMOSYNTHESIS OF On: 19-Mar-2017 Intent BREAST ([id number])By: Cristy Escobedo MD, MD, Dana M Flu Vaccine (Quadrivalent) 18870Zq: On: 19-Mar-2017 Intent Cristy Escobedo MD, MD, Dana M Comments: Lot:[id number]:09/2017Dose:0.5mLRoute:IMSite:L DltdGiven By:SAQIB signed Instructions Name Dates Details Encounter for routine adult medical exam with abnormal findings (Renamed from Encounter for preventative adult health care exam with abnormal findings) : How to access health information online Indication: Encounter for routine adult medical exam with abnormal findings (Renamed from Encounter for preventative adult health care exam with abnormal findings) Encounter for routine adult medical exam with abnormal findings (Renamed from Encounter for preventative adult health care exam with abnormal findings) : How to access health information online - Detail Indication: Encounter for routine adult medical exam with abnormal findings (Renamed from Encounter for preventative adult health care exam with abnormal findings) Encounter for routine adult medical exam with abnormal findings (Renamed from Encounter for preventative adult health care exam with abnormal findings) : Patient Instructions Indication: Encounter for routine adult medical exam with abnormal findings (Renamed from Encounter for preventative adult health care exam with abnormal findings) Nonsmoker : How to access health information online Indication: Nonsmoker Nonsmoker : How to access health information online - Detail Indication: Nonsmoker Nonsmoker : Patient Instructions Indication: Nonsmoker BMI 34.0-34.9,adult : How to access health information online Indication: BMI 34.0-34.9,adult BMI 34.0-34.9,adult : How to access health information online - Detail Indication: BMI 34.0-34.9,adult BMI 34.0-34.9,adult : Patient Instructions Indication: BMI 34.0-34.9,adult BMI 33.0-33.9,adult : How to access health information online Indication: BMI 33.0-33.9,adult BMI 33.0-33.9,adult : How to access health information online - Detail Indication: BMI 33.0-33.9,adult BMI 33.0-33.9,adult : Patient Instructions Indication: BMI 33.0-33.9,adult Nonsmoker : How to access health information online Indication: Nonsmoker Nonsmoker : How to access health information online - Detail Indication: Nonsmoker Nonsmoker : Patient Instructions Indication: Nonsmoker BMI 32.0-32.9,adult : How to access health information online Indication: BMI 32.0-32.9,adult BMI 32.0-32.9,adult : How to access health information online - Detail Indication: BMI 32.0-32.9,adult BMI 32.0-32.9,adult : Patient Instructions Indication: BMI 32.0-32.9,adult BMI 31.0-31.9,adult : How to access health information online Indication: BMI 31.0-31.9,adult BMI 31.0-31.9,adult : How to access health information online - Detail Indication: BMI 31.0-31.9,adult BMI 31.0-31.9,adult : Patient Instructions Indication: BMI 31.0-31.9,adult Encounter for routine adult medical exam with abnormal findings (Renamed from Encounter for preventative adult health care exam with abnormal findings) : How to access health information online Indication: Encounter for routine adult medical exam with abnormal findings (Renamed from Encounter for preventative adult health care exam with abnormal findings) Encounter for routine adult medical exam with abnormal findings (Renamed from Encounter for preventative adult health care exam with abnormal findings) : How to access health information online - Detail Indication: Encounter for routine adult medical exam with abnormal findings (Renamed from Encounter for preventative adult health care exam with abnormal findings) Encounter for routine adult medical exam with abnormal findings (Renamed from Encounter for preventative adult health care exam with abnormal findings) : Patient Instructions Indication: Encounter for routine adult medical exam with abnormal findings (Renamed from Encounter for preventative adult health care exam with abnormal findings) Encounters Office Visit On: 26-Jun-2018 9:09 [facility] End: 29-Jun-2018 9:22 Office Visit On: 12-Jun-2018 7:49 Encounter Reason: Physical female exam - General health: feels well with minor complaints (would like to talk about weight), has good energy level and is sleeping well. The patient's appetite is normal. Nutrition: approp End: 19-Jun-2018 16:17 riate balanced diet. Exercises 0 days per week. Sleeps on average 6 (6.5/7 hrs) hours per night. Normal bowel and bladder habits. There are no current emotional problems. screening, colonoscopy (none yet).Encounter Diagnosis: BMI 34.0-34.9,adult, Nonsmoker, Encounter for routine adult medical exam with abnormal findings (Renamed from Encounter for preventative adult health care exam with abnormal findings), Weight gain, Other chronic sinusitis, Stress reaction (Renamed from Acute reaction to stress), History of Merritt's palsy, Bilateral hearing loss, unspecified hearing loss type, Vitamin D deficiency, SOB (shortness of breath), Encounter for screening mammogram for high-risk patient, Abnormal fasting glucose, History of amenorrhea, Hypercholesteremia, Obesity (BMI 30.0-34.9), BMI 32.0-32.9,adult, BMI 33.0-33.9,adult, Need for Tdap vaccination (Renamed from Need for ccfysjcmvg-qboltpr-zakphzgoa (Tdap) vaccine, adult/adolescent) [facility] Lab Order On: 28-Apr-2018 17:35 Encounter Diagnosis: Abnormal fasting glucose End: 28-Apr-2018 17:38 [facility] Phone Encounter On: 16-Mar-2018 8:39 Encounter Diagnosis: Encounter for screening mammogram for high-risk patient End: 16-Mar-2018 8:47 [facility] Office Visit On: 12-Mar-2018 14:15 Encounter Reason: Follow up acute care visit - The patient feels the same. Patient has been compliant with instructions. Current medication use: experiencing side effects (adipex kept her up at night). Patient sleeps 6 h End: 12-Mar-2018 14:53 ours per night. Impact of disease: emotional impact-mild. Nutrition: balanced diet and supplemental vitamins. The medical issues the patient is following up for include other (adipex check).Encounter Diagnosis: Obesity (BMI 30.0-34.9), Nonsmoker, Need for prophylactic vaccination and inoculation against influenza (Renamed from Need for immunization against influenza), Prediabetes, SOB (shortness of breath) [facility] Office Visit On: 23-Dec-2017 14:12 Encounter Reason: Adipex visit - Exercises 3 times per week. The patient's dietary intake is restricting calories.Encounter Diagnosis: BMI 34.0-34.9,adult, Nonsmoker, Obesity (BMI 30.0-34.9), Stress reaction (Renamed from Acute reaction to stress), End: 23-Dec-2017 15:01 History of amenorrhea [facility] Office Visit On: 14-Oct-2017 13:27 Encounter Reason: Follow up acute care visit - The patient feels the same. Current medication use: no side effects and compliant with dosing regimen. Patient sleeps 7 hours per night. Impact of disease: emotional impact- End: 14-Oct-2017 14:14 mild. Nutrition: balanced diet and supplemental vitamins. The medical issues the patient is following up for include other (weight/diet/exercise).Encounter Diagnosis: BMI 33.0-33.9,adult, Nonsmoker, Obesity (BMI 30.0-34.9), Hypercholesteremia, History of amenorrhea [facility] Office Visit On: 14-Aug-2017 8:45 Encounter Reason: Adipex visit - Exercises 0 (pt states she has put on weight since he last OV) times per week. The patient's dietary intake is no fast food and restricting calories.Encounter Diagnosis: Nonsmoker, Weight gain, BMI 32.0-32.9,adult, End: 14-Aug-2017 9:32 History of amenorrhea, Other chronic sinusitis, History of Merritt's palsy, Vitamin D deficiency, Bilateral hearing loss, unspecified hearing loss type, Obesity (BMI 30.0-34.9), Stress reaction (Renamed from Acute reaction to stress), Flushing, Hypercholesteremia, BMI 31.0-31.9,adult [facility] Office Visit On: 26-May-2017 13:16 Encounter Reason: Adipex visit - The patient's dietary intake is no fast food and restricting calories. other.Encounter Diagnosis: BMI 32.0-32.9,adult, Nonsmoker, Hypercholesteremia, Obesity (BMI 30.0-34.9), End: 26-May-2017 14:58 Stress reaction (Renamed from Acute reaction to stress) [facility] Office Visit On: 24-Apr-2017 14:14 Encounter Reason: Adipex visit - Exercises 0 times per week. The patient's dietary intake is restricting calories. other (Adipex).Encounter Diagnosis: BMI 31.0- 31.9,adult, Nonsmoker, Hypercholesteremia, Obesity (BMI 30.0-34.9) End: 24-Apr-2017 15:05 [facility] Office Visit On: 19-Mar-2017 13:14 Encounter Diagnosis: Encounter for routine adult medical exam with abnormal findings (Renamed from Encounter for preventative adult health care exam with abnormal findings), Nonsmoker, End: 21-Mar-2017 6:58 Need for prophylactic vaccination and inoculation against influenza (Renamed from Need for immunization against influenza), Other chronic sinusitis, Hypercholesteremia, Obesity (BMI 30.0-34.9), Encounter for screening mammogram for breast cancer (Renamed from Encounter for screening mammogram for malignant neoplasm of breast), History of amenorrhea, Vitamin D deficiency, Bilateral hearing loss, unspecified hearing loss type, Flushing, History of Merritt's palsy [facility] Office Visit On: 31-Dec-2016 8:44 [facility] End: 31-Dec-2016 11:41 Payers Billy SWANSON; bryce guarantor
--- OUTSIDE RECORDS SUMMARY | 2018-08-31 03:28 | XMS RPT_ITS | Continuity of Care Document ---
:1970 Author Organization [facility] Address [address] [facility] [address] [place] [address] Phone Care Team Providers Name Role Phone [...] for Tdap vaccination (Renamed from Need for uwlsjmiiqx-akehpzn-wnuyqecle (Tdap) vaccine, adult/adolescent) (Z23, V06.1) Status: Active [...] as of 14-Oct-2017 Procedures Date Value Details 03-Apr-2018 SCREENING MAMM (CAD), BILAT Result: Comments: See Note; NOTES: [facility] Imaging Services [address] [place] [address] SCREENING MAMM (CAD), BILAT MR#: [id number] Acct: [id number] Name: DU SWANSON Rep #: [id number] : 1970 F 47 From: Kai Barksdale MD PCP: Cristy Escobedo MD Status: REG CLI Study: SCREENING MAMM (CAD), BILAT Date of Exam: 04/03/18 Exam# [id number] Ordering Dr: Cristy Escobedo MAMMOGRAPHY - BILATERAL [...] be sent to the patient by the [facility] within 30 days. Approximately 10% of breast cancers are not detected by mammography. A normal mammogram should not delay biopsy of a clinically suspicious abnormality. [id number] Electronically Sig adela: Kai Barksdale MD at 13:42 EDT Tel [phone], Service support , CC: Cristy Escobedo MD Motion Picture Critic: Signed 13-Mar-2018 Chest PA and Lateral Result: Comments: See Note; NOTES: [facility] Imaging Services [address] [place] [address] Chest PA and Lateral MR#: [id number] Acct: [id number] Name: DU SWANSON Rep #: [id number] : 1970 F 47 From: Ventura Felix MD PCP: Cristy Escobedo MD Status: REG CLI Study: Chest PA and Lateral Date of Exam: 03/13/18 Exam# [id number] Ordering Dr: Cristy Escobedo MD STUDY: X-RAY [...] ice support , CC: Cristy Escobedo MD Motion Picture Critic: Signed 31-Mar-2017 SCREENING MAMM (CAD), BILAT Result: Comments: See Note; NOTES: [facility] Imaging Services [address] [place] [address] SCREENING MAMM (CAD), BILAT MR#: [id number] Acct: [id number] Name: DU SWANSON Rep # : [id number] : 1970 F 46 From: Kai Barksdale MD PCP: Cristy Escobedo MD Status: REG CLI Study: SCREENING MAMM (CAD), BILAT Date of Exam: 03/31/17 Exam# [id number] Ordering Dr: Cristy Escobedo MD MAMMOGRAPHY - [...] [facility] within 30 days. Approximately 10% of breast cancers are not detected by mammography. A normal mammogram should not delay biopsy of a clinically suspicious abnormality. [id number] Elect ronically Signed: Kai Barksdale MD at 9:54 EDT Tel [phone], Service support , CC: Cristy Escobedo MD Motion Picture Critic: Signed Family History Unknown Family Member Name [...] and twin boys born 2006. 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: Active Vital Signs Date Test Result Details :12 Temperature 97.8 f Comments: Method: Temporal [...] kg/m2 Body Surface Area Calculated 1.9 m2 88-Tew-881706:20 Temperature 97.1 f Comments: Method: Oral Pulse 64 /min Comments: Pattern: Regular Respiration Rate 18 /min O2 SAT 95 % Comments: Room air BP Systolic 118 mm[Hg] Comments: Patient Position: Sitting BP Diastolic 78 mm[Hg] Comments: Patient Position: Sitting Weight 193 lb Height 64 in Body Mass Index Calculated 33.13 kg/m2 Body Surface Area Calculated 1.93 m2 Results Date Description Value Details 34-Vuo-114315:24 MICROALBUMIN: CREATININE RATIO Comments: PATIENT WAS FASTINGPERFORMED BY: [facility] [id number] ([id number]) AND (74502) Alb/Creat Ratio 2.3 {mg/g_creat} (Normal) Range: 0.0-30.0 Comments: Normal: 0.0 - 30.0 Albuminuria: 31.0 - 300.0 Clinical albuminuria: >300.0 Albumin, Urine 3.3 ug/mL (Normal) Creatinine, Urine 145.2 mg/dL (Normal) 64-Joa-315099:24 URINALYSIS ([id number]) Comments: PATIENT WAS FASTINGPERFORMED BY: [employer] [facility] [id number] Microscopic Examination MICNIP (Normal) Comments: Microscopic not indicated and not performed. Nitrite, Urine Negative (Normal) Urobilinogen,Semi-Qn 0.2 mg/dL (Normal) Range: 0.2-1.0 Bilirubin Negative (Normal) Occult Blood Negative (Normal) Ketones Negative (Normal) Glucose Negative (Normal) Protein Negative (Normal) WBC Esterase Negative (Normal) Appearance Clear (Normal) Urine-Color Yellow (Normal) pH 7.0 (Normal) Range: 5.0-7.5 Specific [place] 1.021 (Normal) Range: 1.005-1.030 :24 CBC WITH MANUAL DIFF Comments: PATIENT WAS FASTINGPERFORMED BY: [employer] [facility] [id number] Information: NURSE DRAW ([id number]) Immature Grans (Abs) 0.0 {x10E3/uL} (Normal) Range: [...] 3.77-5.28 WBC 8.5 {x10E3/uL} (Normal) Range: 3.4-10.8 00-Ice-438853:24 Metabolic Panel, Comprehensive Comments: PATIENT WAS FASTINGPERFORMED BY: [facility] [id number] ([id number]) ALT (SGPT) 18 [iU]/L (Normal) Range: 0-32 [...] 6-24 Glucose 102 mg/dL (Abnormal) Range: 65-99 :54 CORTISOL SERUM Comments: BASELINE OR POST MEDICATION STIMULATION?: [facility] [address] [place], [address] CORTISOL 11.00 ug/dL (Normal) Range: 3.09-22.40 Comments: Adult (AM) 4.30 - 22.40 ug/dL Adult (PM) 3.09 - 16.66 ug/dL :54 DHEA Sulfate Comments: Has Patient had Radioactive Injection for X-ray?: [facility] (refer to report for specific site)refer to report for address and phone number DHEA SULF 4020 50.9 ug/dL (Normal) Range: 41.2-243.7 :54 Estradiol Comments: [facility] [address] [facility] [place], [address] ESTRADIOL 452.0 pg/mL (Normal) Comments: NORMAL REFERENCE [...] DETERMINE ESTRADIOL CONCENTRATION. :54 Free T3 Comments: [facility] [address] [facility] [address] [place], [place], [phone] FREE T3 2.5 pg/mL (Normal) Range: 2.18-3.98 :54 Hemoglobin A1c Comments: [facility] [address] [place], [address] HGB A1C 5.7 % (Normal) Range: 4.2-6.3 :54 Progesterone Level Comments: BASELINE OR POST MEDICATION STIMULATION?: [facility] [address] [place], [place], [id number] Progesterone 0.18 ng/mL (Normal) Comments: Progesterone Reference [...] nmol/L (Normal) Range: 24.6-122.0 Comments: Performed at: [address] [id number] Director: Mahendra Duarte PhD, Phone: [phone] :54 T4 Free Direct Comments: [facility] [address] [place], [place], [address] T4 FREE DIRECT 0.89 ng/dL (Normal) Range: 0.76-1.46 :54 Testosterone, Serum Total Comments: BASELINE OR POST MEDICATION STIMULATION?: [facility] [address] [place], [id number] Testosterone 19.84 ng/dL (Normal) Comments: NORMAL REFERENCE RANGES MALE AGE <50 123.06 - 813.86 ng/dL MALE AGE >50 89.98 - 780.10 ng/dL FEMALE PREMENOPAUSE AGE 21 - 60 9.01 - 47.94 ng/dL FEMALE POSTMENOPAUSE AGE 45 - 89 <7.00 - 45.62 ng/dL REFERENCE RANGE AND METHODOLOGY CHANGED 05/28/201710-Mar-20189:54 Thyroid Stim Hormone (TSH) Comments: [facility] [address] [place], [id number] TSH 2.21 {uIU/mL} (Normal) Range: 0.358-3.74 6-Kod-432205:40 TSH (THYROID STIMULATING Comments: PATIENT NOT FASTINGPERFORMED BY: [employer] [facility] [id number] HORMONE) (41066) TSH 1.640 {uIU/mL} (Normal) Range: 0.450-4.500 4-Tnr-061240:40 ESTRADIOL (08699) Comments: PATIENT NOT FASTINGPERFORMED BY: [facility] [address] [facility] [id number] Estradiol <5.0 pg/mL (Normal) Comments: Adult Female: Follicular phase 12.5 - 166.0 Ovulation phase 85.8 - 498.0 Luteal phase 43.8 - 211.0 Postmenopausal <6.0 - 54.7 1st trimester 215.0 - & gt;4300.0 Girls (1-10 years) 6.0 - 27.0Roche ECLIA methodology :40 PROLACTIN (76577) Comments: PATIENT NOT FASTINGPERFORMED BY: [facility] [address] [facility] [id number] Prolactin 9.0 ng/mL (Normal) Range: 4.8-23.3 9-Zxs-894814:40 HCG Qualitative, Serum (41349) Comments: PATIENT NOT FASTINGPERFORMED BY: [facility] DoverDmrshy8501 [facility] [id number] hCG,Beta Subunit,Qual,Serum Negative m[iU]/mL (Normal) 5-Udo-897275:40 FSH AND LH (40886) Comments: PATIENT NOT FASTINGPERFORMED BY: [facility] DoverGloxhb4026 [facility] [id number] FSH 90.2 m[iU]/mL (Normal) Comments: Adult Female: Follicular phase 3.5 - 12.5 Ovulation phase 4.7 - 21.5 Luteal phase 1.7 - 7.7 Postmenopausal 25.8 - 134.8 LH 58.0 m[iU]/mL (Normal) Comments: Adult Female: Follicular phase 2.4 - 12.6 Ovulation phase 14.0 - 95.6 Luteal phase 1.0 - 11.4 Postmenopausal 7.7 - 58.5 09-Sep-20179:15 Culture, Nose Comments: [facility] [address] [place], [address] CUN See Note (Normal) Comments: Gram StainGram [...] findings) Planned Observations LIPOPROTEIN, BLD, BY NMR (11680)Indication: Hypercholesteremia On: 43-Zyj-695025:54 Request HEPATIC FUNCTION PANEL (61843)Indication: Hypercholesteremia On: 84-Bcp-812133:54 Request CALCIFIDIOL (09496) VIT D 25Indication: Vitamin D deficiency On: 84-Vyt-162058:45 Request Planned Encounters Medical; ARACELI Weight Check - On: 26-Jun-2018 9:00 [facility]; VIJose Weight Check - On: 10-Jul-2018 9:00 [facility] [place]; INGEP 6 Week FU - On: 24-Jul-2018 9:00 [facility] Gregg SPRINGER, Cristy Mauricio MD Medical; ARACELI Weight Check - On: 07-Aug-2018 9:00 [facility] [place] Planned Procedures TDAP VACCINE >7 IM (18181)By: Gregg On: 12-Jun-2018 Intent Cristy SPRINGER MD, Dana M Comments: 0.5 cc given im lt dltd lot 42PT4 exp 03/13/19 MAMMOGRAM BREAST BILATERAL SCREENING On: 16-Mar-2018 Intent DIGITAL (72344)By: Cristy Escobedo MD, MD, Dana M CHEST XRAY, PA & LATERAL (61543)By: On: 12-Mar-2018 Intent Cristy Escobedo MD, MD, Dana M Flu Vaccine (Quadrivalent) 98006Ul: On: 12-Mar-2018 Intent Cristy Escobedo MD, MD, Dana M Comments: Lot #:[id number] date: 1-03-60Gyaxuf given:0.5mlRoute: IMSite given:L DltdGiven by: Dana and JOCELYNE signed [employer] SCREENING DIGITAL TOMOSYNTHESIS OF On: 19-Mar-2017 Intent BREAST ([id number])By: Cristy Escobedo MD, MD, Dana M Flu Vaccine (Quadrivalent) 32812Xf: On: 19-Mar-2017 Intent Cristy Escobedo MD, MD, [...] with abnormal findings) Encounters Office Visit On: 12-Jun-2018 7:49 Encounter Reason: [...] for Tdap vaccination (Renamed from Need for cwhuhgzimt-uitctpt-ooinpayiq (Tdap) vaccine, adult/adolescent) [facility] Lab [...] 8:44 [facility] End: 31-Dec-2016 11:41 Paynam SWANSON; a guarantor
--- OUTSIDE RECORDS SUMMARY | 2018-08-31 03:29 | XMS RPT_ITS ---
:1970 Author Organization OHIP Support Name Relationship Address Phone BREANNE SWANSON Unavailable [address] + [place] [address] + [place] [address] KIKI BREANNE Unavailable [address] + [place] [address] + [place] [address] BREANNE SWANSON Unavailable [address] [place] [address] CT + [place] [address] + [place] [address] BREANNE SWANSON Unavailable [address] [place] [address] CT + [place] [address] + [place] [address] BREANNE SWANSON Unavailable [facility] + [place] [address] + [place] [address] BREANNE SWANSON Unavailable [address] [place] [address] CT + [place] [address] + [place] [address] BREANNE SWANSON Unavailable [address] [place] [address] CT + [place] [address] + [place] [address] Care Team Providers Name Role Phone Cristy Escobedo MD Attending Unavailable Cristy Escobedo MD Referring Unavailable Cristy Escobedo MD Consulting Unavailable Cristy Escobedo Attending Unavailable Cristy Escobedo Referring Unavailable Bonezzi, Cristy Primary Care Unavailable Bonezzi, Cristy Attending Unavailable Bonezzi, Cristy Referring Unavailable Bonezzi, Cristy Primary Care Unavailable Bonezzi, Cristy Attending Unavailable Bonezzi, Cristy Referring Unavailable Bonezzi, Cristy Primary Care Unavailable Evangelista, Sumeet Attending Unavailable Bonezzi, Cristy Referring Unavailable Bonezzi, Cristy Primary Care Unavailable Bonezzi, Cristy Consulting Unavailable Bonezzi, Cristy Attending Unavailable Bonezzi, Cristy Referring Unavailable Bonezzi, Cristy Primary Care Unavailable Shriner, Kia Attending Unavailable Shriner, Kia Referring Unavailable Bonezzi, Cristy Primary Care Unavailable Elizabeth, Keith Attending Unavailable Bonezzi, Cristy Primary Care Unavailable Elizabeth, Keith Referring Unavailable PROBLEMS PROBLEMS DATE TYPE CONDITION / CODE ATTENDING STATUS SOURCE 04/03/2018 Unknown Z12.31 - Cristy Escobedo Active [place] Encounter for [facility] mammogram for Repository malignant neoplasm of breast / Z12.31(ICD-10) 03/13/2018 Unknown R06.02 - Cristy Escobedo Active [place] Shortness of [facility] breath / Hospital R06.02(ICD-10) Repository PROCEDURES PROCEDURES No Procedure Records FoundRESULTS RESULTS LIMITED CHEST CT Observed: 06/26/2018 Status: F Source: [place] W/CCTA 1:48 PM [facility] REPOSITORY [facility] Imaging Services [address] [place] [address] w/CCTA MR#: [id number] Acct: [id number] Name: DU SWANSON Rep #: [id number] : 1970 F 48 From: Kai Barksdale MD PCP: Cristy Escobedo MD Status: REG CLI Study: Limited Chest CT w/CCTA Date of Exam: 06/26/18 Exam# [id number] Ordering Dr: Cristy Escobedo MD STUDY: CT CHEST WITHOUT CONTRAST REASON FOR EXAM: Female, 48 years old. Hyperlipidemia. Calcium scoring exam. Radiological over read examination. RADIATION DOSAGE (If Supplied By Facility): CTDIvol = ( 12.19 ) mGy, DLP = ( 195.04 ) mGycm TECHNIQUE: Transaxial imaging was performed without the administration of intravenous contrast material. Individualized dose optimization techniques were used for this CT. COMPARISON: None. FINDINGS: The lungs are normal. There is no demonstrated pleural abnormality. Normal heart and pericardium. There are multiple small lymph nodes within the mediastinum, which are normal in size and morphology most compatible with reactive lymph hyperplasia. Normal hilar regions. Normal unenhanced pulmonary arteries. Normal aorta arch and descending thoracic aorta. Normal osseous structures. There is no demonstrated abnormality of the visualized upper abdomen. CT/Limited Chest CT w/CCTA IMPRESSION: Normal unenhanced CT Chest examination. Electronically Signed: Kai Barksdale MD at 15:06 EST Tel [phone], Service support , CC: Cristy Escobedo MD Continuous Process Coffee Roaster: Signed TXT - BLOOD FLOW Observed: 06/22/2018 Status: F Source: [place] SCREENING 9:25 PM [facility] REPOSITORY [facility] Cardiovascular Services [address] [place] [address] 06/22/18 0805 MR#: [id number] Acct: [id number] Name: DU SWANSON Rep #: [id number] : 1970 48 From: Hernando Krishnan MD Attending Dr: Cristy Escobedo MD Status: REG REF Ordering Dr: Date: 06/22/18 Location: [facility] Sex: F C Admitted: Reason For Study: Blood Flow Screening Carotid Duplex Ultrasound Abdominal Aorta The right maximum ICA velocity is 106/39.3 cm/s. The maximal outside diameter of the proximal aorta The left maximum ICA velocity is 99.8/37.7 cm/s. measures 1.46 cm in the longitudinal axis. The right ECA velocity is less than 125 cm/s. The maximal outside diameter of the proximal aorta The left ECA velocity is less than 125 cm/s. measures 1.58 x 1.42 cm in the cross-sectional There is no plaque formation noted [...] is 110/74. The left blood pressure is 110/76. The assessment was performed by Kyle Cantrell RVT. Interpretation Summary Normal carotid artery screening (0 to 15% narrowing). Normal aortic ultrasound exam. The ankle/brachial index is normal (1.0 or greater). Ordering Physician: Cristy Escobedo M.D. Performed By: Emy Cantrell RVT and Student 06/22/182123 Date Hernando Krishnan MD CC: Cristy Escobedo MD Date Dictated: 06/22/18804 Date Transcribed: 06/22/182123 Continuous Process Coffee Roaster: Signed SCREENING MAMM (CAD), Observed: 04/03/2018 Status: F Source: [place] BILAT 12:15 PM [facility] REPOSITORY [facility] Imaging Services [address] [place] [address] SCREENING MAMM (CAD), BILAT MR#: [id number] Acct: [id number] Name: DU SWANSON Rep #: [id number] : 1970 F 47 From: Kai Barksdale MD PCP: Cristy Escobedo MD Status: [facility] CLI Study: SCREENING MAMM (CAD), BILAT Date of Exam: 04/03/18 Exam# [id number] Ordering Dr: Cristy Escobedo MD MAMMOGRAPHY - BILATERAL SCREENING REASON FOR EXAM: Female, 47 years old. Routine annual screening examination. PERTINENT HISTORY: Non-contributory. TECHNIQUE: Digital bilateral breast torres (3D mammographic acquisition) in the CC and MLO projections. 2-D mediolateral oblique (MLO) and craniocaudad (CC) views of both breasts were obtained. CAD: Full Field Digital Mammography with Computer Added Detection was performed. COMPARISON: Comparison is made with prior study dated March 31, 2017 and November 08, 2015. FINDINGS: Breast Composition: The breasts are heterogeneously dense, which may obscure small masses. There [...] be sent to the patient by the facility within 30 days. Approximately 10% of breast cancers are not detected by mammography. A normal mammogram should not delay biopsy of a clinically suspicious abnormality. [id number] Electronically Signed: Kai Barksdale MD at 13:42 EDT Tel [phone], Service support , CC: Cristy Escobedo MD Continuous Process Coffee Roaster: Signed CHEST PA AND LATERAL Observed: 03/13/2018 Status: F Source: [place] 8:32 AM [facility] REPOSITORY [facility] Imaging Services [address] [place] [address] Chest PA and Lateral MR#: [id number] Acct: [id number] Name: DU SWANSON Rep #: [id number] : 1970 F 47 From: Ventura Felix MD PCP: Cristy Escobedo MD Status: REG CLI Study: Chest PA and Lateral Date of Exam: 03/13/18 Exam# [id number] Ordering Dr: Cristy Escobedo MD STUDY: X-RAY CHEST REASON FOR EXAM: Female, 47 years old. Dyspnea TECHNIQUE: Frontal and lateral views of the chest. COMPARISON: None. FINDINGS: The lungs are clear and expanded. There is no demonstrated pleural abnormality. Normal size heart. Normal mediastinum and iker. Normal visualized pulmonary arteries. Normal visualized aortic arch and descending thoracic aorta. Normal visualized thoracic spine. Normal visualized ribs, clavicles, and shoulders. There is no demonstrated abnormality of the visualized soft tissue structures of the upper abdomen. RAD/Chest PA and Lateral IMPRESSION: Normal x-ray examination of the chest. Electronically Signed: Ventura Felix MD at 15:19 EDT Tel , Service support , CC: Cristy Escobedo MD Continuous Process Coffee Roaster: Signed FREE T3 Collected: 03/10/2018 Status: F Source: [place] 9:54 AM [facility] REPOSITORY TYPE CODE TESTS RESULT OUT OF RANGE REFERENCE UNITS LAB L501.59692 2.18-3.98 pg/mL Normal FREE T3 2.5 Performed By: #### L501.33114, L501.9520, L506.0400, L3300.1750 #### [place] [facility] [address] [place], [address] THYROID STIM HORMONE Collected: 03/10/2018 Status: F Source: [place] (TSH) 9:54 AM [facility] REPOSITORY TYPE CODE TESTS RESULT OUT OF RANGE REFERENCE UNITS LAB L501.9520 0.358-3.74 uIU/mL Normal TSH 2.21 Performed By: #### L501.44337, L501.9520, L506.0400, L3300.1750 #### [facility] [address] [place], [place], [address] T4 FREE DIRECT Collected: 03/10/2018 Status: F Source: [place] 9:54 AM [facility] REPOSITORY TYPE CODE TESTS RESULT OUT OF RANGE REFERENCE UNITS LAB L506.0400 0.76-1.46 ng/dL Normal T4 FREE 0.89 DIRECT Performed By: #### L501.13627, L501.9520, L506.0400, L3300.1750 #### [facility] [address] [facility] [address] [place], [place], [address] ESTRADIOL Collected: 03/10/2018 Status: F Source: [place] 9:54 AM [facility] REPOSITORY TYPE CODE TESTS RESULT OUT OF RANGE REFERENCE UNITS LAB L3300.1750 pg/mL Normal ESTRADIOL 452.0 Result Comment: NORMAL REFERENCE RANGES FEMALE FOLLICULAR 21.4 - 164.8 pg/mL MID-CYCLE PEAK 49.9 - 367.2 pg/mL LUTEAL 40.2 - 259.0 pg/mL POST-MENOPAUSAL ON MHT <11.0 - 462.1 pg/mL NOT ON MHT <11.0 - 58.3 pg/mL MALE <11.0 - 52.5 pg/mL NOTE: [facility] HAS CONFIRMED THE DRUG FULVETRANT (FASLODEX) MAY CAUSE FALSELY ELEVATED ESTRADIOL RESULTS WHEN USING THIS TEST METHOD. IF PATIENT IS TAKING FULVESTRANT AN ALTERNATIVE METHOD SHOULD BE USED TO DETERMINE ESTRADIOL CONCENTRATION. Performed By: #### L501.82656, L501.9520, L506.0400, L3300.1750 #### [facility] [address] [place], [address] TESTOSTERONE, SERUM TOTAL Collected: 03/10/2018 Status: F Source: [place] 9:54 AM [facility] REPOSITORY Order Comment: BASELINE OR POST MEDICATION STIMULATION?: AM TYPE CODE TESTS RESULT OUT OF REFERENCE UNITS RANGE LAB L509.3000 ng/dL Testosterone Normal 19.84 Result Comment: NORMAL REFERENCE RANGES MALE AGE <50 123.06 - 813.86 ng/dL MALE AGE >50 89.98 - 780.10 ng/dL FEMALE PREMENOPAUSE AGE 21 - 60 9.01 - 47.94 ng/dL FEMALE POSTMENOPAUSE AGE 45 - 89 <7.00 - 45.62 ng/dL REFERENCE RANGE AND METHODOLOGY CHANGED 05/28/2017 Performed By: #### L509.3000, L509.4001, L509.6000 #### [facility] [address] [place], [place], [address] PROGESTERONE LEVEL Collected: 03/10/2018 Status: F Source: [place] 9:54 AM [facility] REPOSITORY Order Comment: BASELINE OR POST MEDICATION STIMULATION?: AM TYPE CODE TESTS RESULT OUT OF REFERENCE UNITS RANGE LAB L509.4001 See Comment ng/mL Progesterone Normal 0.18 Result Comment: Progesterone Reference Table: UNITS Female: Follicular 0.15 - 1.40 ng/mL Luteal 3.34 - 25.56 ng/mL Mid-luteal 4.44 - 28.03 ng/mL Postmenopausal 0.0 - 0.73 ng/mL : 1st Trimester 11.22 - 90.00 ng/mL 2nd Trimester 25.55 - 89.40 ng/mL 3rd Trimester 48.40 -422.50 ng/mL Performed By: #### L509.3000, L509.4001, L509.6000 #### [facility] [address] [place], [place], [address] CORTISOL SERUM Collected: 03/10/2018 Status: F Source: [place] 9:54 AM [facility] REPOSITORY Order Comment: BASELINE OR POST MEDICATION STIMULATION?: AM TYPE CODE TESTS RESULT OUT OF RANGE REFERENCE UNITS LAB L509.6000 3.09-22.40 ug/dL Normal CORTISOL 11.00 Result Comment: Adult (AM) 4.30 - 22.40 ug/dL Adult (PM) 3.09 - 16.66 ug/dL Performed By: #### L509.3000, L509.4001, L509.6000 #### [facility] [address] [place], [address] HEMOGLOBIN A1C Collected: 03/10/2018 Status: F Source: [place] 9:54 AM [facility] REPOSITORY TYPE CODE TESTS RESULT OUT OF RANGE REFERENCE UNITS LAB L501.9985 4.2-6.3 % Normal HGB A1C 5.7 Performed By: #### L501.9985 #### [facility] [address] [place], [place], [address] SEX HORMONE-BINDING Collected: 03/10/2018 Status: F Source: [place] GLOBULIN 9:54 AM [facility] REPOSITORY Order Comment: Has Patient had Radioactive Injection for X-ray?: N TYPE CODE TESTS RESULT OUT OF RANGE REFERENCE UNITS LAB L3100.5060 24.6-122.0 nmol/L Normal SHBG 96.3 Result Comment: Performed at: [address] [id number] Fiscal Agent: Mahendra Duarte PhD, Phone: [phone] Performed By: #### L3100.5060, L3300.1500 #### [facility] (refer to report for specific site) refer to report for address and phone number DHEA SULFATE Collected: 03/10/2018 Status: F Source: [place] 9:54 AM [facility] REPOSITORY Order Comment: Has Patient had Radioactive Injection for X-ray?: N TYPE CODE TESTS RESULT OUT OF RANGE REFERENCE UNITS LAB L3300.1500 41.2-243.7 ug/dL Normal DHEA SULF 50.9 4020 Performed By: #### L3100.5060, L3300.1500 #### [facility] (refer to report for specific site) refer to report for address and phone number Observed: 09/09/2017 Status: F Source: [place] CULTURE, NOSE 9:15 AM [facility] REPOSITORY Gram Stain Gram Stain No White Blood Cells No organisms seen Nasoph. Cult No growth in 48 hours. Performed By: #### M100.0900 #### [facility] [address] [place], [address] ALLERGIES ALLERGIES DATE TYPE / CODE NAME / CODE REACTION SEVERITY SOURCE 03/02/2016 Drug Penicillins/ Unknown Unknown [facility] Allergy/4160 [id number]([facility] [address]85(SNOMED XNORM) Repository CT) ENCOUNTERS ENCOUNTERS ADMIT/DISCHARGE ACCOUNT ADMITTING ENCOUNTER LOCATION SOURCE NUMBER CLASS 06/26/2018 [id number] Ambulatory BMSBuilding:B [place] 6 MS.CF.G [facility] Repository 06/26/2018 [id number] Ambulatory [place] 8 [facility] ing:CT Repository 06/22/2018 [id number] Ambulatory [place] 5 [facility] ing:[facility] Repository 06/12/2018 [id number] Ambulatory Building:[facility] OHIP Practices Repository 04/03/2018 [id number] Ambulatory [place] 7 [facility] ing:OPBI Repository 03/13/2018 [id number] Ambulatory [place] 3 [facility] ing:HPRAD Repository 03/10/2018 [id number] Ambulatory [place] 2 [facility] ing:MTLAB Repository 09/09/2017 [id number] Ambulatory [place] 0 [facility] ing:LABSPEC Repository PAYERS PAYERS ENCOUNTER GUARANTOR PAYER SUBSCRIBER SOURCE 06/26/2018 BREANNE Pardo Primary Insurance:[facility] DU Jessie [place] [id number] PACKAGE PLANPolicy BURIANEKDOB: [facility] Number: [id number], [place] [id number] Repository [address]10[address]Ulg: (330) Date:2018-06-12 [phone] () 06/26/2018 Secondary NOT GIVENUNK [place] Insurance:SELF PAY [facility] Number: Effective Repository Date:2018-06-26 06/26/2018 BREANNE Pardo Primary Insurance:[facility] DU Roman [place] [id number] PACKAGE PLANPolicy BURIANEKDOB: [facility] Number: [id number], [place] [id number] Repository 945[address]Drh: (330) Date:2018-06-12 [phone] () 06/26/2018 Secondary NOT GIVENUNK [place] Insurance:SELF PAY [facility] Number: Effective Repository Date:2018-06-12 06/22/2018 AMANDA Primary NOT GIVENUNK [place] [id number] Insurance:SELF PAY [place] Number: Effective Repository [id number]: (330) Date:2018-06-12 [phone] () 06/12/2018 DU Roman Primary DU K OHIP Practices BURIANEKDOB: Insurance:CignaPolicy BURIANEKDOB: Repository [id number] Number: [id number] [place] [id number] [address] [place] [address] Date:3203-27-11CszrSaint Louis, [place] [address]Eza: (330) Name:[address] [address]Jsf: (HP) [address]Ywovrgzosxa, [place] [phone] () [address]RI: 04/03/2018 BREANNE Pardo Primary DU Roman [place] [id number] Insurance:CIGNAPolicy BURIANEKDOB: [facility] Number: [id number], [place] [id number] Repository [address]Nev: (330) Date:2963-05-03[phone] () [id number], [place] [address]ZG: 04/03/2018 Secondary NOT GIVENUNK [place] Insurance:SELF PAY [facility] Number: Effective Repository Date:2018-03-05 03/13/2018 AMANDA Primary DU Roman [place] [id number] Insurance:CIGNAPolicy BURIANEKDOB: [facility] Number: [id number], [place] [id number] Repository [address]Pdt: (330) Date:5392-72-98[phone] () [id number], [place] [address]FN: 03/13/2018 Secondary NOT GIVENUNK [place] Insurance:SELF PAY [facility] Number: Effective Repository Date:2018-03-13 03/10/2018 BREANNE Pardo Primary DU K [place] [id number] Insurance:CIGNAPolicy BURIANEKDOB: [facility] Number: [id number], [place] [id number] Repository [address]Qul: (330) Date:5910-99-01[phone] () [id number], [place] [address]KZ: 03/10/2018 Secondary NOT GIVENUNK [place] Insurance:SELF PAY [facility] Number: Effective Repository Date:2018-03-10 09/09/2017 Breanne [id number] Insurance:Elaine JorgeB: [facility] Number: [id number] [id number] Repository [address]Qfw: (330) Date:2994-52-74[phone] () [id number], [place] [address]ML: 09/09/2017 Secondary NOT GIVENUNK [place] Insurance:SELF PAY [facility] Number: Effective Repository Date:2017-09-09
--- OUTSIDE RECORDS SUMMARY | 2018-08-31 03:29 | XMS RPT_ITS | Continuity of Care Document ---
:1970 Author Organization [facility] Address [address] [facility] [address] [place] [address] Phone Care Team Providers Name Role Phone Cristy Escobedo MD Unavailable Dr. Adela Buckley MD Unavailable NORAH Dale Unavailable Unavailable Ruby Beck Unavailable Unavailable Unavailable Unavailable Problems Name Dates Details Abnormal fasting glucose (R73.01, 790.29) Status: Active Bilateral hearing loss, unspecified hearing loss type (H91.93, 389.9) Comments: had since young wear hearing aides. Status: Active BMI 32.0-32.9,adult (Z68.32, V85.32) Status: Active BMI 34.0-34.9,adult (Z68.34, V85.34) Status: Active Encounter for routine adult medical exam with abnormal findings (Renamed from Encounter for preventative adult health care exam with abnormal findings) (Z00.01, V70.0) Comments: [facility] 10-17 dental exam -17, eye exam 6-16, mammo due now. pap 5-16 Status: Active Encounter for screening [...] immunization against influenza) (Z23, V04.81) Status: Active Nonsmoker (Z78.9, V49.89) Status: Active Obesity (BMI 30.0-34.9) (E66.9, 278.00) Comments: she needs to get back on tthe exercise and diet. wellbutrin help mood not help appetite. added naltrexone not take because so sick of contrave. do adipex for 3motnhs because work but gain back wieg ht in 3 months not enough time for lifestyle changend drop out exericse. therefore will redo adipex for three months but this time roll right over into adding back naltrexone where she can adjust and re gulate amount so not get sick like contrave if this does not work then belviq. must log and start back exercise. Status: Active Other chronic sinusitis (J32.8, 473.8) Status: Active SOB (shortness of breath) (R06.02, 786.05) Comments: weird signs and symptoms vague start cxr not sound cardiac told signs and symptoms to ER Status: Active Stress reaction (Renamed from Acute reaction to stress) (F43.0, 308.9) Comments: right now doing sukhjinder mckenzie son celeste better with anxiety Status: Active Vitamin D deficiency (E55.9, 268.9) Status: Active Weight gain (R63.5, 783.1) Comments: stop the large pulp Status: Active Medications Name Dates Details Crestor 20 MG Oral Tablet 1 (one) Tablet in am for 0 days Quantity: 90 {Tablet} Refills: 3 Ordered:23-Feb-2018 Gregg SPRINGER, Cristy Gonzales MD Start : 23-Feb-2018 Active Inderal LA 60 MG Oral Capsule Extended Release 24 Hour 1 (one) Capsule Capsule in am for 0 days Quantity: 30 {Capsule} Refills: 3 Ordered:19-Mar-2017 NORAH Dale Start : 19-Mar-2017 Active Victoza 18 MG/3ML Subcutaneous Solution Pen-injector 1 (one) Milligram 0.6 mg SC daily for 1 week then 1.2 mg SC daily for 0 days Quantity: 1 {Syringe} Refills: 3 Ordered:12-Mar-2018 Cristy Escobedo MD, MD, Dana M Start : 12-Mar-2018 Active Comments:with needles Vitamin [...] 32.0-32.9,adult (Z68.32, V85.32) Status: Resolved as of 14-Oct-2017 BMI 33.0-33.9,adult (Z68.33, V85.33) Status: Resolved as of 23-Dec-2017 Encounter for screening mammogram for breast cancer (Renamed from Encounter for screening mammogram for malignant neoplasm of breast) (Z12.31, V76.12) Status: Resolved as of 18-Dec-2017 [place] (R23.2, 782.62) Status: Resolved as of 14-Oct-2017 Procedures Date Value Details 03-Apr-2018 SCREENING MAMM (CAD), BILAT Result: Comments: See Note; NOTES: [facility] Imaging Services [address] [place] [address] SCREENING MAMM (CAD), BILAT MR#: [id number] Acct: [id number] Name: DU SWANSON Rep #: [id number] : 1970 F 47 From: Kai Barksdale MD PCP: Cristy Escobedo MD Status: REG CLI Study: SCREENING MAMM (CAD), BILAT Date of Exam: 04/03/18 Exam# [id number] Ordering Dr: Cristy Escobedo MAMMOGRAPHY - BILATERAL [...] be sent to the patient by the [facility] within 30 days. Approximately 10% of breast cancers are not detected by mammography. A normal mammogram should not delay biopsy of a clinically suspicious abnormality. [id number] Electronically Sig adela: Kai Barksdale MD at 13:42 EDT Tel [phone], Service support , CC: Cristy Escobedo MD Newspaper Publisher: Signed 13-Mar-2018 Chest PA and Lateral Result: Comments: See Note; NOTES: [facility] Imaging Services [address] [place] [address] Chest PA and Lateral MR#: [id number] Acct: [id number] Name: DU SWANSON Rep #: [id number] : 1970 F 47 From: Ventura Felix MD PCP: Cristy Escobedo MD Status: REG CLI Study: Chest PA and Lateral Date of Exam: 03/13/18 Exam# [id number] Ordering Dr: Cristy Escobedo MD STUDY: X-RAY [...] ice support , CC: Cristy Escobedo MD Newspaper Publisher: Signed 31-Mar-2017 SCREENING MAMM (CAD), BILAT Result: Comments: See Note; NOTES: [facility] Imaging Services [address] [place] [address] SCREENING MAMM (CAD), BILAT MR#: [id number] Acct: [id number] Name: DU SWANSON Rep # : [id number] : 1970 F 46 From: Kai Barksdale MD PCP: Cristy Escobedo MD Status: REG CLI Study: SCREENING MAMM (CAD), BILAT Date of Exam: 03/31/17 Exam# [id number] Ordering Dr: Cristy Escobedo MD MAMMOGRAPHY - [...] these results will be sent to the [facility] by the facility within 30 days. Approximately 10% of breast cancers are not detected by mammography. A normal mammogram should not delay biopsy of a clinically suspicious abnormality. [id number] Elect ronically Signed: Kai Barksdale MD at 9:54 EDT Tel [phone], Service support , CC: Cristy Escobedo MD Newspaper Publisher: Signed Family History Unknown Family Member Name Dates Details Father Comments: at 55 yo unknown estranged. 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 builder in [facility] Status: Active Vital Signs Date Test Result Details :16 Temperature 97.9 f Comments: Method: Temporal [...] 1.93 m2 Results Date Description Value Details :54 CORTISOL SERUM Comments: [facility]ELINE [facility] [address] [place], [place], [address] CORTISOL 11.00 ug/dL (Normal) Range: 3.09-22.40 Comments: Adult (AM) 4.30 - 22.40 ug/dL Adult (PM) 3.09 - 16.66 ug/dL :54 DHEA Sulfate Comments: Has Patient had Radioactive Injection for X-ray?: [facility] (refer to report for specific site)refer to report for address and phone number DHEA SULF 4020 50.9 ug/dL (Normal) Range: 41.2-243.7 :54 Estradiol Comments: [facility] [address] [place], [place], [id number] ESTRADIOL 452.0 pg/mL (Normal) Comments: NORMAL REFERENCE [...] DETERMINE ESTRADIOL CONCENTRATION. :54 Free T3 Comments: [facility] [address] [place], [place], [address] FREE T3 2.5 pg/mL (Normal) Range: 2.18-3.98 :54 Hemoglobin A1c Comments: [facility] [address] [place], [place], [address] HGB A1C 5.7 % (Normal) Range: 4.2-6.3 :54 Progesterone Level Comments: BASELINE OR POST MEDICATION STIMULATION?: [facility] [address] [place], [address] Progesterone 0.18 ng/mL (Normal) Comments: Progesterone Reference [...] nmol/L (Normal) Range: 24.6-122.0 Comments: Performed at: [address] [id number] Director: Mahendra Duarte PhD, Phone: [phone] :54 T4 Free Direct Comments: [facility] [address] [place], [address] T4 FREE DIRECT 0.89 ng/dL (Normal) Range: 0.76-1.46 :54 Testosterone, Serum Total Comments: BASELINE OR POST MEDICATION STIMULATION?: [facility] [address] [place], [address] Testosterone 19.84 ng/dL (Normal) Comments: NORMAL REFERENCE RANGES MALE AGE <50 123.06 - 813.86 ng/dL MALE AGE >50 89.98 - 780.10 ng/dL FEMALE PREMENOPAUSE AGE 21 - 60 9.01 - 47.94 ng/dL FEMALE POSTMENOPAUSE AGE 45 - 89 <7.00 - 45.62 ng/dL REFERENCE RANGE AND METHODOLOGY CHANGED 05/28/201710-Mar-20189:54 Thyroid Stim Hormone (TSH) Comments: [facility] [address] [place], [address] TSH 2.21 {uIU/mL} (Normal) Range: 0.358-3.74 9-Irk-378371:40 TSH (THYROID STIMULATING Comments: PATIENT NOT FASTINGPERFORMED BY: [address] [id number] HORMONE) (05062) TSH 1.640 {uIU/mL} (Normal) Range: 0.450-4.500 4-Sam-572044:40 ESTRADIOL (94844) Comments: PATIENT NOT FASTINGPERFORMED BY: [address] [id number] Estradiol <5.0 pg/mL (Normal) Comments: Adult Female: Follicular phase 12.5 - 166.0 Ovulation phase 85.8 - 498.0 Luteal phase 43.8 - 211.0 Postmenopausal <6.0 - 54.7 1st trimester 215.0 - & gt;4300.0 Girls (1-10 years) 6.0 - 27.0Roche ECLIA methodology 1-Aww-559495:40 PROLACTIN (31490) Comments: PATIENT NOT FASTINGPERFORMED BY: [facility] [facility] [id number] Prolactin 9.0 ng/mL (Normal) Range: 4.8-23.3 3-Kne-111066:40 HCG Qualitative, Serum (59214) Comments: PATIENT NOT FASTINGPERFORMED BY: [facility] [facility] [id number] hCG,Beta Subunit,Qual,Serum Negative m[iU]/mL (Normal) 5-Rkf-592486:40 FSH AND LH (11725) Comments: PATIENT NOT FASTINGPERFORMED BY: [facility] [facility] [id number] FSH 90.2 m[iU]/mL (Normal) Comments: Adult Female: Follicular phase 3.5 - 12.5 Ovulation phase 4.7 - 21.5 Luteal phase 1.7 - 7.7 Postmenopausal 25.8 - 134.8 LH 58.0 m[iU]/mL (Normal) Comments: Adult Female: Follicular phase 2.4 - 12.6 Ovulation phase 14.0 - 95.6 Luteal phase 1.0 - 11.4 Postmenopausal 7.7 - 58.5 09-Sep-20179:15 Culture, Nose Comments: [facility] [address] [place], [address] CUN See Note (Normal) Comments: Gram StainGram Stain No White Blood Cells No organisms seen Nasoph. CultNo growth in 48 hours. Plan of Care Name Dates Details Instructions Nonsmoker : Eprescribed prescriptions (G8553) Indication: Nonsmoker Encounter for routine adult medical exam with abnormal findings (Renamed from Encounter for preventative adult health care exam with abnormal findings) : Eprescribed prescriptions (G8553) Indication: Encounter for routine adult medical exam with abnormal findings (Renamed from Encounter for preventative adult health care exam with abnormal findings) Planned Observations MICROALBUMIN: CREATININE RATIO (77531) AND (53185)Indication: Abnormal fasting glucose On: 14-Obs-869135:37 Request URINALYSIS (16135)Indication: Abnormal fasting glucose On: 97-Ioi-936484:37 Request CBC WITH MANUAL DIFF (87867)Indication: Abnormal fasting glucose On: 59-Pep-098671:37 Request Metabolic Panel, Comprehensive (63699)Indication: Abnormal fasting glucose On: 04-Lek-384247:37 Request LIPOPROTEIN, BLD, BY NMR (66097)Indication: Hypercholesteremia On: 78-Guu-968064:54 Request HEPATIC FUNCTION PANEL (70034)Indication: Hypercholesteremia On: 28-Ubt-943411:54 Request CALCIFIDIOL (17589) VIT D 25Indication: Vitamin D deficiency On: 40-Qbo-661251:45 Request Planned Encounters Medical; [facility] Wellness Exam (Doctor) - On: 26-May-2018 15:00 [facility] Gregg SPRINGER, Cristy Mauricio MD Planned Procedures MAMMOGRAM BREAST BILATERAL SCREENING On: 16-Mar-2018 Intent DIGITAL (24280)By: Gregg SPRINGER, Cristy Mauricio MD CHEST XRAY, PA & LATERAL (27937)By: On: 12-Mar-2018 Intent Cristy Escobedo MD, MD, Dana M Flu Vaccine (Quadrivalent) 03714Ru: On: 12-Mar-2018 Intent Cristy Escobedo MD, MD, Dana M Comments: Lot #:[id number] date: 8[birth year]70Qufloh given:0.5mlRoute: IMSite given:L DltdGiven by: Dana and JOCELYNE signed [employer] SCREENING DIGITAL TOMOSYNTHESIS OF On: 19-Mar-2017 Intent BREAST (78996)By: Cristy Escobedo MD, MD, Dana M Flu Vaccine (Quadrivalent) 01932Ti: On: 19-Mar-2017 Intent Cristy Escobedo MD, MD, Dana M Comments: Lot:[id number]:09/2017Dose:0.5mLRoute:IMSite:L DltdGiven By:SAQIB signed Instructions Name Dates Details Nonsmoker : How to access health information [...] health care exam with abnormal findings) Encounters Lab Order On: 28-Apr-2018 17:35 Encounter Diagnosis: [...]
--- OUTSIDE RECORDS SUMMARY | 2018-08-31 03:29 | XMS RPT_ITS | Continuity of Care Document ---
:1970 Author Organization [facility] Address [address] [facility] [address] [place] [address] Phone Care Team Providers Name Role Phone Cristy Escobedo MD Unavailable Dr. Adela Buckley MD Unavailable NORAH Dale Unavailable Unavailable Ruby Beck Unavailable Unavailable Unavailable Unavailable Problems Name Dates Details Bilateral hearing loss, unspecified hearing loss type (H91.93, 389.9) Comments: had since young wear hearing aides. Status: Active BMI 32.0-32.9,adult (Z68.32, V85.32) Status: Active BMI 34.0-34.9,adult (Z68.34, V85.34) Status: Active Encounter for routine adult medical exam with abnormal findings (Renamed from Encounter for preventative adult health care exam with abnormal findings) (Z00.01, V70.0) Comments: [facility] 10-17 dental exam 9-17, eye exam 6-16, mammo due now. pap [...] Other chronic sinusitis (J32.8, 473.8) Status: Active Prediabetes (R73.03, 790.29) Status: Active SOB (shortness of breath) (R06.02, 786.05) Comments: weird signs and symptoms vague start cxr not sound cardiac told signs and symptoms to ER Status: Active Stress reaction (Renamed from Acute reaction to stress) (F43.0, 308.9) Comments: right now doing sukhjinder mckenzie son ruding better with anxiety Status: Active Vitamin D [...] as of 14-Oct-2017 Procedures Date Value Details 13-Mar-2018 Chest PA and Lateral Result: Comments: See Note; NOTES: [facility] Imaging Services [address] [place] [address] Chest PA and Lateral MR#: [id number] Acct: [id number] Name: DU SWANSON Rep #: [id number] : 1970 F 47 From: Ventura Felix MD PCP: Cristy Escobedo MD Status: REG CLI Study: Chest PA and Lateral Date of Exam: 03/13/18 Exam# [id number] Ordering Dr: Cristy Escobedo MD STUDY: X-RAY [...] ice support , CC: Cristy Escobedo MD Video Control Engineer: Signed 31-Mar-2017 SCREENING MAMM (CAD), BILAT Result: Comments: See Note; NOTES: [facility] Imaging Services [address] [place] [address] SCREENING MAMM (CAD), BILAT MR#: [id number] Acct: [id number] Name: DU SWANSON Rep # : [id number] : 1970 F 46 From: Kai Barksdale MD PCP: Cristy Escobedo MD Status: REG CLI Study: SCREENING MAMM (CAD), BILAT Date of Exam: 03/31/17 Exam# [id number] Ordering Dr: Cristy Escobedo MD MAMMOGRAPHY - [...] these results will be sent to the [facility] by the facility within 30 days. Approximately 10% of breast cancers are not detected by mammography. A normal mammogram should not delay biopsy of a clinically suspicious abnormality. [id number] Elect ronically Signed: Kai Barksdale MD at 9:54 EDT Tel [phone], Service support , CC: Cristy Escobedo MD Video Control Engineer: Signed Family History Unknown Family Member Name [...] and twin boys born 2006. 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 Vital Signs Date Test Result [...] SERUM Comments: BASELINE OR POST MEDICATION STIMULATION?: [facility] [address] [place], [place], [address] CORTISOL 11.00 ug/dL (Normal) Range: 3.09-22.40 Comments: Adult (AM) 4.30 - 22.40 ug/dL Adult (PM) 3.09 - 16.66 ug/dL :54 DHEA Sulfate Comments: Has Patient had Radioactive Injection for X-ray?: [facility] (refer to report for specific site)refer to report for address and phone number DHEA SULF 4020 50.9 ug/dL (Normal) Range: 41.2-243.7 :54 Estradiol Comments: [facility] [address] [place], [place], [address] ESTRADIOL 452.0 pg/mL (Normal) Comments: NORMAL REFERENCE [...] DETERMINE ESTRADIOL CONCENTRATION. :54 Free T3 Comments: [facility] [address] [place], [place], [id number] FREE T3 2.5 pg/mL (Normal) Range: 2.18-3.98 :54 Hemoglobin A1c Comments: [facility] [address] [place], [place], [address] HGB A1C 5.7 % (Normal) Range: 4.2-6.3 :54 Progesterone Level Comments: BASELINE OR POST MEDICATION STIMULATION?: [facility] [address] [place], [place], [address] Progesterone 0.18 ng/mL (Normal) Comments: Progesterone Reference [...] nmol/L (Normal) Range: 24.6-122.0 Comments: Performed at: - [facility] [id number] Director: Mahendra Duarte PhD, Phone: [phone] :54 T4 Free Direct Comments: [facility] [address] [facility] [address] [place], [place], [id number] T4 FREE DIRECT 0.89 ng/dL (Normal) Range: 0.76-1.46 :54 Testosterone, Serum Total Comments: BASELINE OR POST MEDICATION STIMULATION?: [facility] [address] [place], [place], [address] Testosterone 19.84 ng/dL (Normal) Comments: NORMAL REFERENCE RANGES MALE AGE <50 123.06 - 813.86 ng/dL MALE AGE >50 89.98 - 780.10 ng/dL FEMALE PREMENOPAUSE AGE 21 - 60 9.01 - 47.94 ng/dL FEMALE POSTMENOPAUSE AGE 45 - 89 <7.00 - 45.62 ng/dL REFERENCE RANGE AND METHODOLOGY CHANGED 05/28/201710-Mar-20189:54 Thyroid Stim Hormone (TSH) Comments: [facility] [address] [place], [place], [address] TSH 2.21 {uIU/mL} (Normal) Range: 0.358-3.74 2-Jvw-952549:40 TSH (THYROID STIMULATING Comments: PATIENT NOT FASTINGPERFORMED BY: [facility] [id number] HORMONE) (58100) TSH 1.640 {uIU/mL} (Normal) Range: 0.450-4.500 3-Chy-827402:40 ESTRADIOL (99156) Comments: PATIENT NOT FASTINGPERFORMED BY: [facility] [facility] [id number] Estradiol <5.0 pg/mL (Normal) Comments: Adult Female: Follicular phase 12.5 - 166.0 Ovulation phase 85.8 - 498.0 Luteal phase 43.8 - 211.0 Postmenopausal <6.0 - 54.7 1st trimester 215.0 - & gt;4300.0 Girls (1-10 years) 6.0 - 27.0Roche ECLIA methodology 5-Dqg-626812:40 PROLACTIN (55549) Comments: PATIENT NOT FASTINGPERFORMED BY: [address] [id number] Prolactin 9.0 ng/mL (Normal) Range: 4.8-23.3 7-Nll-462695:40 HCG Qualitative, Serum (35805) Comments: PATIENT NOT FASTINGPERFORMED BY: [place] [id number] [facility] [id number] hCG,Beta Subunit,Qual,Serum Negative m[iU]/mL (Normal) 9-Drg-137866:40 FSH AND LH (70858) Comments: PATIENT NOT FASTINGPERFORMED BY: [address] [id number] FSH 90.2 m[iU]/mL (Normal) Comments: Adult Female: Follicular phase 3.5 - 12.5 Ovulation phase 4.7 - 21.5 Luteal phase 1.7 - 7.7 Postmenopausal 25.8 - 134.8 LH 58.0 m[iU]/mL (Normal) Comments: Adult Female: Follicular phase 2.4 - 12.6 Ovulation phase 14.0 - 95.6 Luteal phase 1.0 - 11.4 Postmenopausal 7.7 - 58.5 09-Sep-20179:15 Culture, Nose Comments: [facility] [address] [place], [place], [id number] CUN See Note (Normal) Comments: Gram StainGram [...] findings) Planned Observations LIPOPROTEIN, BLD, BY NMR (40751)Indication: Hypercholesteremia On: 17-Zzf-968576:54 Request HEPATIC FUNCTION PANEL (18570)Indication: Hypercholesteremia On: 07-Hif-978815:54 Request CALCIFIDIOL (32386) VIT D 25Indication: Vitamin D deficiency On: 91-Ulh-635053:45 Request Planned Encounters Medical; [facility] Pre Wellness Exam (DB Nurse) - On: 04-May-2018 9:00 [facility] NORAH Dale; [facility] Exam (Doctor) - On: 26-May-2018 15:00 [facility] Gregg SPRINGER, Cristy Mauricio MD Planned Procedures MAMMOGRAM BREAST BILATERAL SCREENING On: 16-Mar-2018 Intent DIGITAL (02790)By: Cristy Escobedo MD, MD, Dana M CHEST XRAY, PA & LATERAL (97329)By: On: 12-Mar-2018 Intent Cristy Escobedo MD, MD, Dana M Flu Vaccine (Quadrivalent) 95196Pt: On: 12-Mar-2018 Intent Cristy Escobedo MD, MD, Dana M Comments: Lot #:[id number] date: 9-62-22Eiwvtb given:0.5mlRoute: IMSite given:L DltdGiven by: Dana and JOCELYNE signed [employer] SCREENING DIGITAL TOMOSYNTHESIS OF On: 19-Mar-2017 Intent BREAST (43466)By: Cristy Escobedo MD, MD, Dana M Flu Vaccine (Quadrivalent) 87552Is: On: 19-Mar-2017 Intent Cristy Escobedo MD, MD, [...] health care exam with abnormal findings) Encounters Phone Encounter On: 16-Mar-2018 8:39 Encounter Diagnosis: [...]
--- OUTSIDE RECORDS SUMMARY | 2018-08-31 03:29 | XMS RPT_ITS | Continuity of Care Document ---
:1970 Author Organization [facility] Address [address] [facility] [facility] [address] [place] [address] Phone Care Team Providers Name Role Phone Cristy Escobedo MD Unavailable Dr. Adela Buckley MD Unavailable Edyta Rodriguez Unavailable Unavailable NORAH Dale Unavailable Unavailable Unavailable Unavailable Problems Name Dates [...] for Tdap vaccination (Renamed from Need for rulchccxqh-mgigava-dwkbdlgkb (Tdap) vaccine, adult/adolescent) (Z23, V06.1) Status: Active [...] Refills: 3 Ordered:12-Mar-2018 Cristy Escobedo MD, MD, Cristy Guerrero Start : 12-Mar-2018 Active Comments:with needles Vitamin D3 Super Strength 2000 UNIT Oral Capsule 1 (one) Capsule Capsule in am for 0 days Quantity: 30 {Capsule} Refills: 0 Ordered:24-Apr-2017 NORAH Dale Start : 19-Mar-2017 Active Wellbutrin XL 150 MG Oral Tablet Extended Release 24 Hour 1 (one) Tablet in am for 0 days Quantity: 30 {Tablet} Refills: 2 Ordered:14-Oct-2017 Cristy Escobedo MD, MD, Cristy Guerrero Start : 14-Oct-2017 Active Wellbutrin XL 150 MG Oral Tablet Extended Release 24 Hour 1 (one) Tablet in am for 0 days Quantity: 90 {Tablet} Refills: 3 Ordered:14-Oct-2017 Cristy Escobedo MD, MD, Cristy Guerrero Start : 14-Oct-2017 Active Naltrexone HCl 50 [...] (CAD), BILAT Result: Comments: See Note; NOTES: [facility] Imaging Services [address] [place] [address] SCREENING MAMM (CAD), BILAT MR#: [id number] Acct: [id number] Name: DU SWANSON Rep #: [id number] : 1970 F 47 From: Kai Barksdale MD PCP: Cristy Escobedo MD Status: REG CLI Study: SCREENING MAMM (CAD), BILAT Date of Exam: 04/03/18 Exam# [id number] Ordering Dr: Cristy Escobedo MAMMOGRAPHY - BILATERAL [...] be sent to the patient by the [facility] within 30 days. Approximately 10% of breast cancers are not detected by mammography. A normal mammogram should not delay biopsy of a clinically suspicious abnormality. [id number] Electronically Sig adela: Kai Barksdale MD at 13:42 EDT Tel [phone], Service support , CC: Cristy Escobedo MD Independent Distributor: Signed 13-Mar-2018 Chest PA and Lateral Result: Comments: See Note; NOTES: [facility] Imaging Services [address] [place] [address] Chest PA and Lateral MR#: [id number] Acct: [id number] Name: DU SWANSON Rep #: [id number] : 1970 F 47 From: Ventura Felix MD PCP: Cristy Escobedo MD Status: REG CLI Study: Chest PA and Lateral Date of Exam: 03/13/18 Exam# [id number] Ordering Dr: Cristy Escobedo MD STUDY: X-RAY [...] ice support , CC: Cristy Escobedo MD Independent Distributor: Signed 31-Mar-2017 SCREENING MAMM (CAD), BILAT Result: Comments: See Note; NOTES: [facility] Imaging Services [address] [place] [address] SCREENING MAMM (CAD), BILAT MR#: [id number] Acct: [id number] Name: DU SWANSON Rep # : [id number] : 1970 F 46 From: Kai Barksdale MD PCP: Cristy Escobedo MD Status: REG CLI Study: SCREENING MAMM (CAD), BILAT Date of Exam: 03/31/17 Exam# [id number] Ordering Dr: Cristy Escobedo MD MAMMOGRAPHY - [...] these results will be sent to the [facility] nt by the facility within 30 days. Approximately 10% of breast cancers are not detected by mammography. A normal mammogram should not delay biopsy of a clinically suspicious abnormality. [id number] Elect ronically Signed: Kai Barksdale MD at 9:54 EDT Tel [phone], Service support , CC: Cristy Escobedo MD Independent Distributor: Signed Family History Unknown Family Member Name [...] and twin boys born 2006. 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 Vital Signs Date Test Result [...] kg/m2 Body Surface Area Calculated 1.9 m2 20-Ydw-655903:20 Temperature 97.1 f Comments: Method: Oral Pulse 64 /min Comments: Pattern: Regular Respiration Rate 18 /min O2 SAT 95 % Comments: Room air BP Systolic 118 mm[Hg] Comments: Patient Position: Sitting BP Diastolic 78 mm[Hg] Comments: Patient Position: Sitting Weight 193 lb Height 64 in Body Mass Index Calculated 33.13 kg/m2 Body Surface Area Calculated 1.93 m2 Results Date Description Value Details 62-Kzj-581014:24 MICROALBUMIN: CREATININE RATIO Comments: PATIENT WAS FASTINGPERFORMED BY: [facility] [id number] ([id number]) AND ([id number]) Alb/Creat Ratio 2.3 {mg/g_creat} (Normal) Range: 0.0-30.0 Comments: Normal: 0.0 - 30.0 Albuminuria: 31.0 - 300.0 Clinical albuminuria: >300.0 Albumin, Urine 3.3 ug/mL (Normal) Creatinine, Urine 145.2 mg/dL (Normal) 72-Bro-676141:24 URINALYSIS ([id number]) Comments: PATIENT WAS FASTINGPERFORMED BY: [facility] [id number] Microscopic Examination MICNIP (Normal) Comments: Microscopic not indicated and not performed. Nitrite, Urine Negative (Normal) Urobilinogen,Semi-Qn 0.2 mg/dL (Normal) Range: 0.2-1.0 Bilirubin Negative (Normal) Occult Blood Negative (Normal) Ketones Negative (Normal) Glucose Negative (Normal) Protein Negative (Normal) WBC Esterase Negative (Normal) Appearance Clear (Normal) Urine-Color Yellow (Normal) pH 7.0 (Normal) Range: 5.0-7.5 Specific Sturgeon 1.021 (Normal) Range: 1.005-1.030 :24 CBC WITH MANUAL DIFF Comments: PATIENT WAS FASTINGPERFORMED BY: [facility] [id number] Information: NURSE DRAW ([id number]) Immature Grans (Abs) 0.0 {x10E3/uL} (Normal) Range: [...] 3.77-5.28 WBC 8.5 {x10E3/uL} (Normal) Range: 3.4-10.8 15-Efr-401388:24 Metabolic Panel, Comprehensive Comments: PATIENT WAS FASTINGPERFORMED BY: [facility] [address] [facility] [id number] ([id number]) ALT (SGPT) 18 [iU]/L (Normal) Range: 0-32 [...] SERUM Comments: BASELINE OR POST MEDICATION STIMULATION?: [facility] [address] [facility] [place], [address] CORTISOL 11.00 ug/dL (Normal) Range: 3.09-22.40 Comments: Adult (AM) 4.30 - 22.40 ug/dL Adult (PM) 3.09 - 16.66 ug/dL :54 DHEA Sulfate Comments: Has Patient had Radioactive Injection for X-ray?: [facility] (refer to report for specific site)refer to report for address and phone number DHEA SULF 4020 50.9 ug/dL (Normal) Range: 41.2-243.7 :54 Estradiol Comments: [facility] [address] [place], [address] ESTRADIOL 452.0 pg/mL (Normal) Comments: [...] DETERMINE ESTRADIOL CONCENTRATION. :54 Free T3 Comments: [facility] [address] [facility]. [place], [place], [address] FREE T3 2.5 pg/mL (Normal) Range: 2.18-3.98 :54 Hemoglobin A1c Comments: [facility] [address] [place], [place], [address] HGB A1C 5.7 % (Normal) Range: 4.2-6.3 :54 Progesterone Level Comments: BASELINE OR POST MEDICATION STIMULATION?: [facility] [address] [facility]. [place], [place], [id number] Progesterone 0.18 ng/mL (Normal) Comments: Progesterone Reference [...] nmol/L (Normal) Range: 24.6-122.0 Comments: Performed at: [facility] [address] [id number] Director: Mahendra Duarte PhD, Phone: [phone] :54 T4 Free Direct Comments: [facility] [address] [place], [id number] T4 FREE DIRECT 0.89 ng/dL (Normal) Range: 0.76-1.46 :54 Testosterone, Serum Total Comments: BASELINE OR POST MEDICATION STIMULATION?: [facility] [address] [place], [id number] Testosterone 19.84 ng/dL (Normal) Comments: NORMAL REFERENCE RANGES MALE AGE <50 123.06 - 813.86 ng/dL MALE AGE >50 89.98 - 780.10 ng/dL FEMALE PREMENOPAUSE AGE 21 - 60 9.01 - 47.94 ng/dL FEMALE POSTMENOPAUSE AGE 45 - 89 <7.00 - 45.62 ng/dL REFERENCE RANGE AND METHODOLOGY CHANGED 05/28/201710-Mar-20189:54 Thyroid Stim Hormone (TSH) Comments: [facility] [address] [place], [id number] TSH 2.21 {uIU/mL} (Normal) Range: 0.358-3.74 0-Qvm-618993:40 TSH (THYROID STIMULATING Comments: PATIENT NOT FASTINGPERFORMED BY: [facility] [id number] HORMONE) ([id number]) TSH 1.640 {uIU/mL} (Normal) Range: 0.450-4.500 7-Pzc-240369:40 ESTRADIOL (94707) Comments: PATIENT NOT FASTINGPERFORMED BY: [facility] [facility] [id number] Estradiol <5.0 pg/mL (Normal) Comments: Adult Female: Follicular phase 12.5 - 166.0 Ovulation phase 85.8 - 498.0 Luteal phase 43.8 - 211.0 Postmenopausal <6.0 - 54.7 1st trimester 215.0 - & gt;4300.0 Girls (1-10 years) 6.0 - 27.0Roche ECLIA methodology 6-Nfd-177186:40 PROLACTIN (24426) Comments: PATIENT NOT FASTINGPERFORMED BY: [facility] [facility] [id number] Prolactin 9.0 ng/mL (Normal) Range: 4.8-23.3 6-Nsf-159629:40 HCG Qualitative, Serum (59531) Comments: PATIENT NOT FASTINGPERFORMED BY: [facility] [id number] hCG,Beta Subunit,Qual,Serum Negative m[iU]/mL (Normal) 8-Fvx-736376:40 FSH AND LH (19393) Comments: PATIENT NOT FASTINGPERFORMED BY: [facility] [address] [facility] [id number] FSH 90.2 m[iU]/mL (Normal) Comments: Adult Female: Follicular phase 3.5 - 12.5 Ovulation phase 4.7 - 21.5 Luteal phase 1.7 - 7.7 Postmenopausal 25.8 - 134.8 LH 58.0 m[iU]/mL (Normal) Comments: Adult Female: Follicular phase 2.4 - 12.6 Ovulation phase 14.0 - 95.6 Luteal phase 1.0 - 11.4 Postmenopausal 7.7 - 58.5 09-Sep-20179:15 Culture, Nose Comments: [facility] [address] [place], [place], [address] CUN See Note (Normal) Comments: Gram StainGram [...] findings) Planned Observations LIPOPROTEIN, BLD, BY NMR (44012)Indication: Hypercholesteremia On: 16-Ioe-183135:54 Request HEPATIC FUNCTION PANEL (56666)Indication: Hypercholesteremia On: 47-Mac-855825:54 Request CALCIFIDIOL (47406) VIT D 25Indication: Vitamin D deficiency On: 63-Zoz-631432:45 Request Planned Encounters Medical; ARACELI Weight Check - On: 26-Jun-2018 9:00 [facility] NORAH Dale; ARACELI Weight Check - On: 10-Jul-2018 9:00 [facility] NORAH Dale; ARACELI 6 Week FU - On: 24-Jul-2018 9:00 [facility] Gregg SPRINGER, Cristy Mauricio MD Medical; ARACELI Weight Check - On: 07-Aug-2018 9:00 [facility] NORAH Dale Planned Procedures TDAP VACCINE >7 IM (67514)By: Gregg On: 12-Jun-2018 Intent Cristy SPRINGER MD, Dana M Comments: 0.5 cc given im lt dltd lot [id number] exp 03/13/19 MAMMOGRAM BREAST BILATERAL SCREENING On: 16-Mar-2018 Intent DIGITAL (99663)By: Cristy Escobedo MD, MD, Dana M CHEST XRAY, PA & LATERAL (83881)By: On: 12-Mar-2018 Intent Cristy Escobedo MD, MD, Dana M Flu Vaccine (Quadrivalent) 71946Bi: On: 12-Mar-2018 Intent Cristy Escobedo MD, MD, Dana M Comments: Lot #:[id number] date: 9-65-01Zcpnwh given:0.5mlRoute: IMSite given:L DltdGiven by: Dana and JOCELYNE signed [employer] SCREENING DIGITAL TOMOSYNTHESIS OF On: 19-Mar-2017 Intent BREAST (62524)By: Cristy Escobedo MD, MD, Dana M Flu Vaccine (Quadrivalent) 77458Jz: On: 19-Mar-2017 Intent Cristy Escobedo MD, MD, [...] health care exam with abnormal findings) Encounters Review On: 12-Jun-2018 7:49 Encounter Reason: Physical female exam - General health: feels well with minor complaints (would like to talk about weight), has good energy level and is sleeping well. The patient's appetite is normal. Nutrition: approp riate balanced diet. Exercises 0 days per [...] for Tdap vaccination (Renamed from Need for emwjeybdgw-kvwgpgc-sohpwzqki (Tdap) vaccine, adult/adolescent) [facility] Lab [...] Medicine End: 31-Dec-2016 11:41 Payers Billy SWANSON; a guarantor
== END ==
PROVIDERS: Family Provider Internal Medicine; PCP Internal Medicine; Referring Provider Internal Medicine; Visit Provider Internal Medicine
DX: E78.5 Hyperlipidemia, unspecified (principal)
CPT/HCPCS: 75571; 76380

== ENCOUNTER → 2018-09-23 14:55 | Outpatient (CLI) | payer OTHER, SELFPAY ==
[2018-06-26 13:59] VITALS: BMI 34.0
--- NOTE | 2018-09-23 14:59 | CT_ITS ---
STUDY: CT CHEST WITH CONTRAST REASON FOR EXAM: Female, 48 years old. One week history of shortness of breath. RADIATION DOSAGE (If Supplied By Facility): CTDIvol = ( 10.05 ) mGy, DLP = ( 547.80 ) mGycm TECHNIQUE: Transaxial imaging was performed following intravenous administration of 100 IV Isovue 370. Multiplanar coronal and sagittal images were reformatted. Individualized dose optimization techniques were used for this CT. COMPARISON: Comparison is made with prior study dated June 26, 2018. FINDINGS: Small bilateral benign appearing axillary lymph nodes. The lungs are normal. There is no demonstrated pleural abnormality. Normal heart and pericardium. Normal mediastinum. Normal hilar regions. Normal enhanced pulmonary arteries. Normal aorta arch and descending thoracic aorta. Normal osseous structures. There is no demonstrated abnormality of the visualized upper abdomen. CT/Chest WITH Contrast IMPRESSION: Normal enhanced CT Chest examination. Electronically Signed: Kai Barksdale, at 15:31 EDT , Service support ,
--- NOTE | 2018-09-23 15:22 | NURSING ---
PT DEVELOPED HIVES ON NECK, UPPER CHEST AFTER CONTRAST INJECTION. DENIES ANY WORSENED SOB. PT ATTACHED TO MONITOR. 158/77. 74, 99 RA, 16 RPM. PT GIVEN WATER AND DARI DOONES.
--- NOTE | 2018-09-23 15:33 | NURSING ---
145/75 72 BPM, 98 RA, 16 RPM. PT LESS RED. DENIES COMPLAINTS.
== END ==
PROVIDERS: Family Provider Internal Medicine; PCP Internal Medicine; Referring Provider Internal Medicine; Visit Provider Internal Medicine
DX: R06.02 Shortness of breath (principal)
CPT/HCPCS: 71260; Q9967

== ENCOUNTER → 2018-10-02 10:56 | Outpatient (CLI) | payer OTHER, SELFPAY ==
[2018-06-26 13:59] VITALS: BMI 34.0
--- NOTE | 2018-10-02 11:02 | RAD_ITS ---
STUDY: X-RAY - CERVICAL SPINE REASON FOR EXAM: Female, 48 years old. Right-sided facial tingling TECHNIQUE: 6 view(s) of the cervical spine were obtained. COMPARISON: None FINDINGS: Normal anterior atlantoaxial articulation. Normal odontoid process. Normal cervical lordosis. Normal vertebral bodies and endplates. Normal disc space heights. Normal visualized intervertebral neuroforamina. The soft tissue structures are unremarkable. RAD/Cerv Spine 4 or 5 Views IMPRESSION: Normal x-ray examination of the visualized cervical spine. Electronically Signed: Nacho Pavon MD at 14:01 EDT , Service support ,
--- NOTE | 2018-10-02 14:09 | MRI_ITS ---
STUDY: MRI BRAIN WITH AND WITHOUT CONTRAST REASON FOR EXAM: Female, 48 years old. Tingling and numbness within the chin and right-sided findings, right hand and foot. TECHNIQUE: Standardized multiplanar fat and water weighted pulse sequences were obtained. 18 IV Gadavist was administered for the contrast portion of the examination. COMPARISON: None. FINDINGS: Normal size of the ventricles and extra-axial spaces for the patient's age. Normal white matter tracts of the supratentorial brain. There is no evidence for recent intracranial ischemia or other cause of cytotoxic edema on diffusion weighted imaging (DWI). Normal T2* images of the brain without demonstrated susceptibility artifact. There is no demonstrated hemosiderin stain. Normal bilateral basal ganglia. Normal thalami. There is no extra-axial fluid accumulation. Normal flow voids within the major intracranial circulation suggesting patency by spin echo criteria. Normal venous enhancement. There is no enhancing intra-axial or extra-axial abnormality. Normal sella turcica, pituitary gland, infundibular stalk, optic chiasm and hypothalamus. Normal tectal plate and pineal gland. Normal midbrain, rod and medulla. Normal cerebellum. Normal basal cisterns. Normal bilateral temporal bones. Normal bilateral internal auditory canals. No demonstrated orbital abnormality, within the constraints of a routine brain study. Normal visualized paranasal sinuses. Normal calvarium and skull base. Normal visualized soft tissue structures. Normal visualized upper cervical spine. MRI/Brain W/WO Contrast IMPRESSION: No evidence of acute intracranial bleed, mass or ischemia. Electronically Signed: Toby Zafar DO at 9:29 EDT , Service support ,
== END ==
LOC: HPRAD 11:01 → MRI 14:07
PROVIDERS: Family Provider Internal Medicine; PCP Internal Medicine; Referring Provider Internal Medicine; Visit Provider Internal Medicine
DX: R20.2 Paresthesia of skin (principal)
CPT/HCPCS: 70553; 72050; A9575

== ENCOUNTER → 2018-11-24 | Outpatient (CLI) | payer OTHER, SELFPAY ==
[2018-06-26 13:59] VITALS: BMI 34.0
== END | disposition home or self-care (01) ==
LOC: LABSPEC 15:18
PROVIDERS: Referring Provider Otolaryngology Otolaryngology/Facial Plastic Surgery; Visit Provider Otolaryngology Otolaryngology/Facial Plastic Surgery
DX: J32.9 Chronic sinusitis, unspecified (principal); J02.9 Acute pharyngitis, unspecified
CPT/HCPCS: 87070

== ENCOUNTER 2018-12-03 07:14 | Day surgery (SDC) | payer OTHER, SELFPAY ==
[2018-06-26 13:59] VITALS: BMI 34.0
[2018-12-03 07:31] VITALS: BP 138/88; PULSE 81; RESP 16; TEMP 36.4; O2SAT 95; BMI 34.0
[2018-12-03 07:43] LABS: Internal QC Validated? YES +Cl - CLEAR BKGD; Pregnancy, Urine Negative Negative
--- NOTE | 2018-12-03 08:46 | DCINST_ITS ---
Discharge Diet: No Restrictions Discharge Activity: Return to Normal Activity Additional Activity Instructions:: Keep ears dry. Allergies/Adverse Reactions: Allergies Penicillins Allergy (Verified 11/30/18 08:23) Unknown Iodinated Contrast- Oral and IV Dye [CONTRASTS] Adverse Reaction (Verified 11/30/18 08:23) Hives Medications to take at Discharge Rosuvastatin Calcium [Crestor] 20 mg PO DAILY 05/24/13 Bupropion HCl [Wellbutrin Xl] 150 mg PO DAILY 11/30/18 Progesterone, Micronized [Prometrium] 300 mg PO DAILY 11/30/18 Propranolol HCl [Inderal LA] 60 mg PO DAILY 11/30/18 Primary Care Physician: Cristy Escobedo MD [Primary Care Provider] - Test Results: Test results from this visit will be discussed in further detail at your follow- up appointment, if applicable. Please Follow Up With: Keith Johnson MD - [phone] When: 1-2 weeks.
[2018-12-03 08:49] VITALS: BP 138/88; BP 140/88; PULSE 81; RESP 16; TEMP 36.9; O2SAT 100
[2018-12-03 09:00] VITALS: BP 121/93; BP 138/88; PULSE 78; RESP 16; O2SAT 100
[2018-12-03 09:06] VITALS: BP 119/83; BP 138/88; PULSE 73; RESP 16; TEMP 37.1; O2SAT 99
--- NOTE | 2018-12-03 09:12 | PCM.OPRPT ---
Report of Operation Date of Procedure: 12/03/18 Pre-Operative Diagnosis: Chronic eustachian tube dysfunction with serous otitis media Post-Operative Diagnosis: Same Surgery/Procedure Performed:: Bilateral myringotomy with tympanostomy tube placement Type of Anesthesia:: General Anesthesiologist: Arnie Evans CRNA Description of Procedure: The patient was transported to the operating room and placed on the OR table in the supine position. After the administration of adequate general mask anesthesia the patient was a properly positioned and the operating room microscope was utilized to examine the left ear. Examination revealed retracted tympanic membrane but no heavy fluid at this time. A myringotomy was created in the anterior inferior aspect. A T-type tube was placed uneventfully and the attention was directed to the right ear which was examined and treated in similar fashion. The right tympanic membrane also was retracted but heavy fluid was not evident. Myringotomy was created in the anterior inferior aspect. Any residual moisture was evacuated with #3 suction tip and a T-type tube was placed and the procedure terminated. Patient tolerated procedure well, did not sustain any intraoperative anesthetic or surgical complication, was taken to the PACU where she was noted to be in satisfactory condition. Keith Johnson MD
[2018-12-03 09:24] VITALS: BP 138/88
== END 2018-12-03 09:37 | disposition home or self-care (01) ==
LOC: SDC 07:15 → AC 07:16
PROVIDERS: Anesthesiology; Family Provider Internal Medicine; PCP Internal Medicine; Referring Provider Otolaryngology Otolaryngology/Facial Plastic Surgery; Visit Provider Otolaryngology Otolaryngology/Facial Plastic Surgery
PROC: (CPT 69436; principal; 2018-12-03 08:40)
DX: H69.83 Other specified disorders of Eustachian tube, bilateral (principal)
CPT/HCPCS: 69436; 81025; J7120

== ENCOUNTER → 2019-04-21 15:57 | Outpatient (CLI) | payer OTHER, SELFPAY ==
--- NOTE | 2019-04-21 15:58 | BI_ITS ---
MAMMOGRAPHY - BILATERAL SCREENING REASON FOR EXAM: Female, 48 years old. Routine annual screening examination. PERTINENT HISTORY: Non-contributory. TECHNIQUE: Digital bilateral breast abdulaziz (3D mammographic acquisition) in the CC and MLO projections. 2-D mediolateral oblique (MLO) and craniocaudad (CC) views of both breasts were obtained. CAD: Full Field Digital Mammography with Computer Added Detection was performed. COMPARISON: Comparison is made with prior study dated April 03, 2018 and March 31, 2017. FINDINGS: Breast Composition: The breasts are heterogeneously dense, which may obscure small masses. There are no dominant masses or suspicious calcifications. Stable benign-appearing bilateral axillary lymph nodes. No other significant abnormalities are identified. There has been no significant change since the prior study. BI/SCREEN MAMM (CAD) W/ABDULAZIZ BILAT IMPRESSION: Stable bilateral screening mammogram. Yearly follow-up mammogram recommended. (A) ASSESSMENT CATEGORY: BIRADS Category 2: Benign. A letter regarding these results will be sent to the patient by the facility within 30 days. Approximately 10% of breast cancers are not detected by mammography. A normal mammogram should not delay biopsy of a clinically suspicious abnormality. [id number] Electronically Signed: Kai Barksdale, at 9:16 EST , Service support ,
== END ==
PROVIDERS: Family Provider Internal Medicine; PCP Internal Medicine; Referring Provider Internal Medicine; Visit Provider Internal Medicine
DX: Z12.31 Encounter for screening mammogram for malignant neoplasm of breast (principal)
CPT/HCPCS: 77063; 77067

== ENCOUNTER → 2019-06-22 09:01 | Outpatient (CLI) | payer OTHER, SELFPAY ==
--- NOTE | 2019-06-22 09:06 | RAD_ITS ---
STUDY: X-RAY CHEST REASON FOR EXAM: Female, 49 years old. Cough TECHNIQUE: Two view of the chest were performed COMPARISON: 23 September 2018 FINDINGS: Lungs are clear. There is no pneumothorax, pulmonary edema, pleural effusions or cardiomegaly. Interstitial markings are increased in visibility. Osseous structures are intact. There is no gas under the diaphragms. [ ] RAD/Chest PA and Lateral IMPRESSION: 1. Increased interstitial markings, possibly acute bronchitis. 2. No lobar pneumonia. Electronically Signed: Ana Parisi, at 17:15 EST Tel , Service support ,
== END ==
PROVIDERS: Family Provider Internal Medicine; PCP Internal Medicine; Referring Provider Internal Medicine; Visit Provider Internal Medicine
DX: R05 Cough (principal)
CPT/HCPCS: 71046

== ENCOUNTER → 2019-12-16 08:16 | Outpatient (CLI) | payer OTHER, SELFPAY | LOC: LAB.FUTURE 08:16 → LAB 02-23 11:41 | PROVIDERS: PCP Internal Medicine; Visit Provider Obstetrics & Gynecology | DX: N95.1 Menopausal and female climacteric states (principal) ==

== ENCOUNTER → 2019-12-20 10:06 | Outpatient (CLI) | payer OTHER, SELFPAY ==
[2019-12-20 13:30] LABS: Progesterone Level < 0.21 ng/mL (See Comment)
[2019-12-20 14:04] LABS: Albumin, Serum 3.6 g/dL (3.2-5.0); CRP, High Sensitivity Cardiac 1.44 mg/L; Estradiol 50.8 pg/mL; Follicle Stimulating Hormone 25.8 mIU/mL
[2019-12-21 05:07] LABS: DHEA Sulfate 56.7 ug/dL (41.2-243.7)
[2019-12-21 09:30] LABS: Sex Hormone-binding Globulin 32.5 nmol/L (24.6-122.0)
== END ==
PROVIDERS: PCP Internal Medicine; Referring Provider Obstetrics & Gynecology; Visit Provider Obstetrics & Gynecology
DX: N95.1 Menopausal and female climacteric states (principal)
CPT/HCPCS: 36415; 82040; 82533; 82627; 82670; 83001; 84144; 84270; 84403; 86141; 82626

== ENCOUNTER → 2020-06-15 15:39 | Outpatient (CLI) | payer OTHER, SELFPAY ==
--- NOTE | 2020-06-15 15:42 | BI_ITS ---
MAMMOGRAPHY - BILATERAL SCREENING REASON FOR EXAM: Female, 50 years old. Routine annual screening examination. PERTINENT HISTORY: Non-contributory. TECHNIQUE: Digital bilateral breast abdulaziz (3D mammographic acquisition) in the CC and MLO projections. 2-D mediolateral oblique (MLO) and craniocaudad (CC) views of both breasts were obtained. CAD: Full Field Digital Mammography with Computer Added Detection was performed. COMPARISON: Comparison is made with prior study dated 04/21/2019 04/03/2018. FINDINGS: Breast Composition: The breasts are heterogeneously dense, which may obscure small masses. There are no dominant masses or suspicious calcifications. Stable small benign appearing bilateral axillary lymph nodes. No other significant abnormalities are identified. There has been no significant change since the prior study. BI/SCREEN MAMM (CAD) W/ABDULAZIZ BILAT IMPRESSION: Stable bilateral screening mammogram. Yearly follow-up mammogram recommended. (A) ASSESSMENT CATEGORY: BIRADS Category 2: Benign. A letter regarding these results will be sent to the patient by the facility within 30 days. Approximately 10% of breast cancers are not detected by mammography. A normal mammogram should not delay biopsy of a clinically suspicious abnormality. [id number] Electronically Signed: Kai Barksdale, at 8:42 EST , Service support ,
== END ==
PROVIDERS: PCP Internal Medicine; Referring Provider Internal Medicine; Visit Provider Internal Medicine
DX: Z12.31 Encounter for screening mammogram for malignant neoplasm of breast (principal)
CPT/HCPCS: 77063; 77067

== ENCOUNTER → 2020-06-27 16:40 | Outpatient (CLI) | payer OTHER, SELFPAY ==
[2020-07-02 16:35] LABS: HPV APTIMA, High Risk Negative (Negative)
== END ==
PROVIDERS: PCP Internal Medicine; Visit Provider Obstetrics & Gynecology
DX: Z12.4 Encounter for screening for malignant neoplasm of cervix (principal)
CPT/HCPCS: 87624; 88175; G0145

== ENCOUNTER → 2020-07-07 12:59 | Outpatient (CLI) | payer OTHER, SELFPAY ==
--- NOTE | 2020-07-07 | EMB_PTH ---
PATIENT: DU SWANSON [id number] AGE/SX: 54/F ROOM: RE07/07/[address]: Dr. Rosemary Wood MD : 1970 BED: DIS: SPEC #: [id number] RECD: 07/07/20 13:37 STATUS: RICHARD REMani #: [id number] RAMIREZ: 07/07/20 00:[address]: Rosemary Barriga DEPT: SURGICAL PATHOLOGY RECD BY: Cristofer Coffman ENTERED: 07/10/20 10:55 SP TYPE: ENDOM BX/C ALICIA DR: Dr. Cristy Escobedo MD Tissues: Endometrium, NOS Procedures: Surgery Specimen Level IV HEADER OPERATION: Endometrial biopsy PRE-OP DIAGNOSIS: Postmenopausal bleeding TISSUE SUBMITTED: Endometrial biopsy MICROSCOPIC DIAGNOSIS Endometrium, biopsy: Strips of benign superficial endometrium. AM:tod 07/11/2020 MICROSCOPIC DESCRIPTION Slides are reviewed. GROSS DESCRIPTION Received in fixative is one container labeled with the patient's name and designated endometrial biopsy. The specimen consists of multiple irregular fragments of light simpson soft tissue that in aggregate measure 1.3 x 1 x <0.1 cm. The specimen is totally submitted in one cassette. / AM:tod 07/10/20 TC:5 CPT: 44183
== END ==
PROVIDERS: PCP Internal Medicine; Visit Provider Obstetrics & Gynecology
DX: N95.0 Postmenopausal bleeding (principal)
CPT/HCPCS: 88305

== ENCOUNTER → 2020-08-04 14:01 | Outpatient (CLI) | payer SELFPAY ==
--- NOTE | 2020-08-04 14:09 | CT_ITS ---
STUDY: CARDIAC CALCIUM SCORING - CT CHEST REASON FOR EXAM: Female, 50 years old. Hyperlipidemia, limited CT chest over-read only. RADIATION DOSAGE (If Supplied By Facility): CTDIvol = ( 12.19 ) mGy, DLP = ( 195.04 ) mGycm TECHNIQUE: Axial non-enhanced images were acquired through the heart for the sole purpose of measuring coronary artery calcium. Individualized dose optimization techniques were used for this CT. COMPARISON: Comparison is made with prior CT scan of the chest dated 09/23/2018. FINDINGS: Small benign-appearing mediastinal lymph nodes. The lungs are clear. No significant coronary artery calcification is seen. CT/Limited Chest CT w/CCTA IMPRESSION: No acute abnormality is seen. Please go to: [email or web address] , for a description of the calculator. Electronically Signed: Kai Barksdale MD at 9:52 EST , Service support ,
[2020-08-04 14:13] VITALS: BP 123/73; PULSE 70; RESP 16; O2SAT 96; BMI 33.5
--- NOTE | 2020-08-04 16:36 | CA.SCORE ---
Calcium Scoring Date of Study:: 08/04/20 Coronary Calcium Scoring: High-resolution Computed Tomographic imaging of the chest was performed on [08/04/2020], with particular attention paid to the coronary arteries. Images from the examination were analyzed for the presence and extent of coronary artery calcification , using coronary calcium quantification software. The patient tolerated the procedure well and there were no complications. The results of the coronary calcification analysis are provided below. - Findings Left Main (LM): 0 Left Anterior Descending (LAD): 0 Left Circumflex (LCX): 0 Right Coronary Artery (RCA): 0 Total Agatston Score: 0 Percentile Rankin Calcium Scoring Interpretation: 0 No identifiable atherosclerotic plaque. Very low cardiovascular disease risk. <5% chance of presence coronary artery disease A Negative Examination 1-10 Minimal Plaque burden. Significant coronary artery disease very unlikely. 11-100 Mild plaque burden. Likely mild or minimal coronary atherosclerosis. 101-400 Moderate plaque burden Moderate non-obstructive coronary artery disease highly likely. Over 400 Extensive plaque burden. High likelihood of at least one significant coronary stenosis (>50% diameter) Calcium Score: 0 Negative Examination - No significant atherosclerotic plaquing noted. A full evaluation of cardiac risk should include assessment of all conventional risk factors and the scores and percentile rankings reported herein should be reported in that context.
== END ==
PROVIDERS: PCP Internal Medicine; Referring Provider Internal Medicine; Visit Provider Internal Medicine
DX: E78.5 Hyperlipidemia, unspecified (principal)
CPT/HCPCS: 75571; 76380

== ENCOUNTER → 2021-04-06 09:05 | Outpatient (CLI) | payer OTHER, SELFPAY | PROVIDERS: PCP Internal Medicine; Visit Provider Student in an Organized Health Care Education/Training Program | DX: Z78.0 Asymptomatic menopausal state (principal) | CPT/HCPCS: 36415; 83001; 83002 ==

== ENCOUNTER → 2021-04-12 15:52 | Outpatient (CLI) | payer OTHER, SELFPAY ==
--- NOTE | 2021-04-12 15:56 | CT_ITS ---
STUDY: CT CHEST WITHOUT CONTRAST REASON FOR EXAM: Female, 50 years old. COUGH RADIATION DOSAGE (If Supplied By Facility): CTDIvol = ( 10.01 ) mGy, DLP = ( 313.11 ) mGycm TECHNIQUE: Transaxial imaging was performed without the administration of intravenous contrast material. Multiplanar coronal and sagittal images were reformatted. Individualized dose optimization techniques were used for this CT. COMPARISON: None. FINDINGS: The lungs are normal. There is no demonstrated pleural abnormality. Normal heart and pericardium. Normal mediastinum. Normal hilar regions. Normal unenhanced pulmonary arteries. Normal aorta arch and descending thoracic aorta. There are mild degenerative changes of the thoracic spine. There is a solitary gallstone. CT/Chest without Contrast IMPRESSION: Normal unenhanced CT Chest examination. Electronically Signed: Robby Robertson MD at 16:52 EDT , Service support ,
== END ==
PROVIDERS: PCP Internal Medicine; Referring Provider Internal Medicine; Visit Provider Internal Medicine
DX: R05.9 Cough, unspecified (principal)
CPT/HCPCS: 71250

== ENCOUNTER 2021-07-03 08:17 | Outpatient (CLI) | payer OTHER, SELFPAY ==
--- NOTE | 2021-07-03 08:20 | BI_ITS ---
MAMMOGRAPHY - BILATERAL SCREENING REASON FOR EXAM: Female, 51 years old. Routine annual screening examination. PERTINENT HISTORY: Non-contributory. TECHNIQUE: Digital bilateral breast abdulaziz (3D mammographic acquisition) in the CC and MLO projections. 2-D mediolateral oblique (MLO) and craniocaudad (CC) views of both breasts were obtained. CAD: Full Field Digital Mammography with Computer Added Detection was performed. COMPARISON: Comparison is made with prior study dated 06/15/2020 and 04/21/2019. FINDINGS: Breast Composition: The breasts are heterogeneously dense, which may obscure small masses. There are no dominant masses or suspicious calcifications. Stable small benign-appearing bilateral axillary lymph nodes. No other significant abnormalities are identified. There has been no significant change since the prior study. BI/SCRN MAMM (CAD)W/ABDULAZIZ BILAT IMPRESSION: Stable bilateral screening mammogram. Yearly follow-up mammogram recommended. (A) ASSESSMENT CATEGORY: BIRADS Category 2: Benign. A letter regarding these results will be sent to the patient by the facility within 30 days. Approximately 10% of breast cancers are not detected by mammography. A normal mammogram should not delay biopsy of a clinically suspicious abnormality. [id number] Electronically Signed: Kai Barksdale MD at 9:10 EST , Service support ,
== END 2021-07-03 23:59 | disposition short-term general hospital (02) ==
LOC: OPBI 08:18
PROVIDERS: PCP Internal Medicine; Visit Provider Internal Medicine
DX: Z12.31 Encounter for screening mammogram for malignant neoplasm of breast (principal)
CPT/HCPCS: 77063; 77067

== ENCOUNTER 2021-08-01 07:55 | Day surgery (SDC) | payer OTHER, SELFPAY ==
[2021-08-01 08:20] VITALS: BP 127/82; PULSE 93; RESP 18; TEMP 36.8; O2SAT 96; BMI 32.9
--- NOTE | 2021-08-01 08:21 | HP.PCM_ITS ---
HPI - General HPI Narrative DU SWANSON, is a 51 F who presents for screening colonoscopy. Patient's never had a previous colonoscopy. Denies any family history of colon cancer. Patient states she has bowel movements almost every day denies any blood, denies any chronic abdominal pain/nausea/vomiting/reflux. FOR[facility]LY [facility], LATER [facility] Medical History (Updated 08/01/21 @ 09:[address] Racheal Barragan MD) COVID High cholesterol Non-smoker Post-menopausal Vasodilatation Wears glasses Wears hearing aid Home Medications rosuvastatin [Crestor] 20 mg PO DAILY 05/24/13 [History Last Taken Unknown] bupropion HCl 300 mg PO DAILY 11/30/18 [History Last Taken Unknown] propranolol 60 mg PO DAILY 11/30/18 [History Last Taken 12/03/18] cholecalciferol (vitamin D3) [Vitamin D3] 125 mcg PO DAILY 07/04/21 [History Last Taken Unknown] Allergy/AdvReac Type Severity Reaction Status Date / Time Penicillins Allergy Unknown Verified 07/04/21 15:13 Iodinated Contrast Media AdvReac Hives Verified 07/04/21 15:13 [CONTRASTS] Surgical History (Updated 07/04/21 @ 15:22 by Zahida Hendrix) History of myringotomy Hx of tonsillectomy Social History Smoking Status: Never smoker Past Medical/Surgical History Planned Operation Planned Operative Procedure/s: CSCOPE OA S.O.S: No Previous Hospitalizations/Surgeries HX Hospitalizations: No HX of Surgeries: T&A, high cholesterol Any Problems With Anesthesia: No You/Your Family Experience Fever (Hyperthermia) With Anes: No Cholinesterase deficiency: No Cardiovascular Hx Chest Pain within Last 2 months: No Hx of Irregular Heartbeat and/or Afib: No Hx Heart Attack: No Hx Congestive Heart Failure: No Hx Rheumatic Fever: No Hx Hypertension: No Hx Internal Defibrillator: No Hx Pacemaker: No Hx Cardiac Catheterization: No Hx Cardiac Surgery/Stents/Etc.: No Hx Stress Test: No Hx Pain in Legs when Walking/Leg Cramps: No Respiratory Chronic Cough: No HX of Shortness of Breath: No Hoarseness: No Hx Chronic Obstructive Pulmonary Disease (COPD): No Hx Asthma: No Hx Emphysema: No Hx Sleep Apnea: No Hx Respiratory Tract Infection/Cold (presently): No Do You Snore Loudly (louder than talking or can be heard): Yes Do You Often Feel Tired/ Fatigued/ Sleepy Dring Daytime?: No Has Anyone Observed You Stop Breathing During Sleep?: No Result (for STOP score): Negative Hx Smoking: No Smoking Status: Never smoker Gastrointestinal Hx Gastroesophageal Reflux: No Hx Gastrointestinal Disorders: No Hx Gastrointestinal Bleed: No Hx Ulcer: No Hx Hiatal Hernia: No Difficulty Chewing/Swallowing: No Special diet followed at home: No Hx Unplanned Weight Loss of 20#: No HX Unplanned Weight Gain of 20#: No Neurological Hx Seizures: No HX Syncope/Blackout Spells/Unconsciousness: No Hx Transient Ischemic Attacks (TIA): No Hx Multiple Sclerosis: No Hx Parkinson's Disease: No Hx Head/Neck Injury: No Hx Headaches: No Hx Back Injury/Pain: No Recent Onset of Speech Difficulty: No Restless Legs: No Does patient have nerve stimulator: No Blood Disorder Hx Leukemia: No Bleeding Tendencies: No Hx Deep Vein Thrombosis: No Hx High Cholesterol: Yes Blood Transmitted Disease: No Hx Hepatitis: No Hx Cirrhosis: No Hx Anemia: No Hx Blood Disorders: No Reproduction : No Is Patient Lactating: No Hx Hysterectomy: No Hx Tubal Ligation: No Are You Post Menopause: No Genitourinary Hx Renal Disease: No Musculoskeletal Hx Arthritis: No Hx Rheumatoid Arthritis: No Hx Gout: No Recent Onset of an Orthopedic Problem: No Endocrine Hx Diabetes: No Thyroid Disease: No Hx Steroid Therapy: No Psycho/Social Hx Substance Use: No Hx Alcohol Use: No Hx Anxiety: Yes Hx Depression: No Mental Illness: No Hx Dementia: No Miscellaneous Hx Cancer: No Recent Exposure to Contagious Disease: No Hx of C-Diff: No Any Loose Teeth: No Allergies Penicillins Allergy (Verified 07/04/21 15:13) Unknown Iodinated Contrast Media [CONTRASTS] Adverse Reaction (Verified 07/04/21 15:13) Hives Discharge Is Pt Admitted From a Jail, or a Shelter: No After D/C, Where Do you Plan to Go: Return Home Physical Exam Const alert, oriented x3 and no apparent distress HEENT normocephalic and head/scalp atraumatic Resp normal respiratory effort Cardio regular rate GI soft to palpation and non-tender; Negative for non-distended Palpation: Negative for guarding Extremity no clubbing, cyanosis or edema Neuro CN's II-XII intact bilaterally Psych mental status grossly normal Assessment & Plan Assessment/Plan (1) Screening for colon cancer: Procedure Criteria Type of Procedure Procedure Type: Elective Elective Risks - COVID COVID Risk Discussion: The surgeon/proceduralist and patient have discussed in detail the risk of exposure to and/or potential harm posed by the COVID-19 virus with having a surgery/procedure at this time versus the risk of delaying the surgery/procedure. It is not possible to know either the risk of delaying the surgery or procedure or chance of getting an infection with perfect accuracy, but a joint decision was made between the patient and the surgeon/proceduralist to proceed at this time with the scheduled surgery/procedure as indicated on the consent form. Surgery Risks - Colonoscopy Risks Include but are not Limited To: Risks include but are not limited to: Bleeding, perforation requiring further surgery, inability to complete colonoscopy requiring barium enema.
[2021-08-01] MEDS: Lactated Ringers 1,000 ML 15 ML IV (08:31)
--- NOTE | 2021-08-01 09:49 | OP.CCLET_ITS ---
08/01/2021 Cristy Escobedo Re : Colonoscopy procedure for Joana Flores Dear Gregg This procedure was performed on Sunday, August 01, 2021. My impressions and recommendations are as follows: Impressions : - Hemorrhoids found on perianal exam. - Non-bleeding internal hemorrhoids. - The entire examined colon is normal. - No specimens collected. Recommendations : - Discharge patient to home. - Resume previous diet. - Continue present medications. - Repeat colonoscopy in 10 years for screening purposes. My findings are described in the full procedure note, which is enclosed. If I can be of further assistance, please feel free to contact me at Doctor phone number(s): , Work: . Sincerely, MD Racheal Bhandari MD 08/01/2021 9:48:46 AM This report has been signed electronically.
--- NOTE | 2021-08-01 09:49 | OP.COLON_ITS ---
Patient Name: Joana Flores Procedure Date: 08/01/2021 9:18 AM Date of : 1970 Age: 51 Procedure: Colonoscopy Indications: Screening for colorectal malignant neoplasm Providers: Racheal Barragan MD Referring MD: Cristy Escobedo Medicines: Monitored Anesthesia Care Patient Profile: This is a 51 year old female. Last Colonoscopy: none. The patient's first colonoscopy is today. Complications: No immediate complications. Procedure: Pre-Anesthesia Assessment: - Prior to the procedure, a History and Physical was performed, and patient medications and allergies were reviewed. The patient's tolerance of previous anesthesia was also reviewed. The risks and benefits of the procedure and the sedation options and risks were discussed with the patient. All questions were answered, and informed consent was obtained. Prior Anticoagulants: The patient has taken no previous anticoagulant or antiplatelet agents. ASA Grade Assessment: Per anesthesia. After reviewing the risks and benefits, the patient was deemed in satisfactory condition to undergo the procedure. After I obtained informed consent, the scope was passed under direct vision. Throughout the procedure, the patient's blood pressure, pulse, and oxygen saturations were monitored continuously. The Colonoscope was introduced through the anus and advanced to the cecum, identified by the appendiceal orifice, ileocecal valve and palpation. The colonoscopy was performed without difficulty. The patient tolerated the procedure well. The quality of the bowel preparation was good. Scope In: 9:28:15 AM Scope Withdrawal Time 0 hours 9 minutes 5 seconds Scope Out: 9:41:44 AM Total Procedure Duration Time 0 hours 13 minutes 29 seconds Findings: Hemorrhoids were found on perianal exam. Non-bleeding internal hemorrhoids were found. The hemorrhoids were Grade I (internal hemorrhoids that do not prolapse). The entire examined colon appeared normal. Impression: - Hemorrhoids found on perianal exam. - Non-bleeding internal hemorrhoids. - The entire examined colon is normal. - No specimens collected. Recommendation: - Discharge patient to home. - Resume previous diet. - Continue present medications. - Repeat colonoscopy in 10 years for screening purposes. Procedure Code(s): --- Professional --- G0121, PT, Colorectal cancer screening; colonoscopy on individual not meeting criteria for high risk Diagnosis Code(s): --- Professional --- Z12.11, Encounter for screening for malignant neoplasm of colon K64.0, First degree hemorrhoids CPT copyright 2017 [employer]. All rights reserved. The codes documented in this report are preliminary and upon land developer review may be revised to meet current compliance requirements. MD Racheal Bhandari MD 08/01/2021 9:48:46 AM This report has been signed electronically. Number of Addenda: 0 Note Initiated On: 08/01/2021 9:18 AM
[2021-08-01 09:50] VITALS: BP 127/82; BP 92/61; BP 96/66; PULSE 92; PULSE 98; RESP 16; TEMP 36.4; O2SAT 93; O2SAT 96
[2021-08-01 09:55] VITALS: BP 104/74; BP 127/82; PULSE 87; RESP 16; O2SAT 100
[2021-08-01 10:00] VITALS: BP 104/72; BP 127/82; PULSE 82; RESP 16; O2SAT 100
[2021-08-01 10:05] VITALS: BP 102/74; BP 127/82; PULSE 82; RESP 16; TEMP 36.3; O2SAT 100
[2021-08-01 10:35] VITALS: BP 127/82
== END 2021-08-01 23:59 | disposition home or self-care (01) ==
LOC: EN 07:58 → AC 07:58
PROVIDERS: PCP Internal Medicine; Referring Provider Internal Medicine; Visit Provider Surgery
PROC: 0DJD8ZZ Inspection of Lower Intestinal Tract, Via Natural or Artificial Opening Endoscopic (ICD-10-PCS; CPT 45378; principal; 2021-08-01 09:25)
DX: Z12.11 Encounter for screening for malignant neoplasm of colon (principal); K64.0 First degree hemorrhoids; Z91.041 Radiographic dye allergy status; E78.00 Pure hypercholesterolemia, unspecified; Z86.16 Personal history of COVID-19
CPT/HCPCS: 45378; J7120

== ENCOUNTER → 2022-07-12 | Outpatient (CLI) | payer OTHER, SELFPAY ==
--- NOTE | 2022-07-12 12:35 | BI_ITS ---
MAMMOGRAPHY - BILATERAL SCREENING REASON FOR EXAM: Female, 52 years old. Routine annual screening examination. PERTINENT HISTORY: Non-contributory. TECHNIQUE: Digital bilateral breast abdulaziz (3D mammographic acquisition) in the CC and MLO projections. 2-D mediolateral oblique (MLO) and craniocaudad (CC) views of both breasts were obtained. CAD: Full Field Digital Mammography with Computer Added Detection was performed. COMPARISON: Comparison is made with prior study dated 12/31/2021 and 06/15/2020. FINDINGS: Breast Composition: The breasts are heterogeneously dense, which may obscure small masses. There are no dominant masses or suspicious calcifications. Stable small benign-appearing bilateral axillary lymph nodes. No other significant abnormalities are identified. There has been no significant change since the prior study. BI/SCRN MAMM (CAD)W/ABDULAZIZ BILAT IMPRESSION: Stable bilateral screening mammogram. Yearly follow-up mammogram recommended. (A) ASSESSMENT CATEGORY: BIRADS Category 2: Benign. A letter regarding these results will be sent to the patient by the facility within 30 days. Approximately 10% of breast cancers are not detected by mammography. A normal mammogram should not delay biopsy of a clinically suspicious abnormality. [id number] Electronically Signed: Kai Barksdale MD at 13:57 EST ,
== END | disposition home or self-care (01) ==
LOC: OPBI 12:21
PROVIDERS: PCP Internal Medicine; Referring Provider Internal Medicine; Visit Provider Internal Medicine
DX: Z12.31 Encounter for screening mammogram for malignant neoplasm of breast (principal)
CPT/HCPCS: 77063; 77067

== ENCOUNTER → 2023-07-15 | Outpatient (CLI) | payer OTHER, SELFPAY ==
--- NOTE | 2023-07-15 09:49 | BI_ITS ---
MAMMOGRAPHY - BILATERAL SCREENING REASON FOR EXAM: Female, 53 years old. Routine annual screening examination. PERTINENT HISTORY: Non-contributory. TECHNIQUE: Digital bilateral breast abdulaziz (3D mammographic acquisition) in the CC and MLO projections. 2-D mediolateral oblique (MLO) and craniocaudad (CC) views of both breasts were obtained. CAD: Full Field Digital Mammography with Computer Added Detection was performed. COMPARISON: Comparison is made with prior study dated July 12, 2022 and July 03, 2021. FINDINGS: Breast Composition: The breasts are heterogeneously dense, which may obscure small masses. There are no dominant masses or suspicious calcifications. Stable small benign-appearing bilateral axillary lymph nodes. No other significant abnormalities are identified. There has been no significant change since the prior study. BI/SCRN MAMM (CAD)W/ABDULAZIZ BILAT IMPRESSION: Stable bilateral screening mammogram. Yearly follow-up mammogram recommended. (A) ASSESSMENT CATEGORY: BIRADS Category 2: Benign. A letter regarding these results will be sent to the patient by the facility within 30 days. Approximately 10% of breast cancers are not detected by mammography. A normal mammogram should not delay biopsy of a clinically suspicious abnormality. [id number] Electronically Signed: Kai Barksdale MD at 10:38 EST ,
== END | disposition home or self-care (01) ==
LOC: OPBI 09:49
PROVIDERS: PCP Internal Medicine; Referring Provider Internal Medicine; Visit Provider Internal Medicine
DX: Z12.31 Encounter for screening mammogram for malignant neoplasm of breast (principal)
CPT/HCPCS: 77063; 77067

== ENCOUNTER → 2024-06-24 | Outpatient (CLI) | payer OTHER, SELFPAY ==
--- NOTE | 2024-06-24 16:28 | US_ITS ---
STUDY: ULTRASOUND OF THE FEMALE PELVIS - COMPLETE REASON FOR EXAM: Female, 54 years old. Post menopausal bleeding LMP: The patient is postmenopausal. TECHNIQUE: Transvaginal TECHNICAL QUALITY: Adequate. COMPARISON: None. FINDINGS: The uterus is retroverted and is in a midline position. The uterus measures 7.9 cm x 5.6 cm x 4.5 cm. Normal uterine cervix. The endometrium is thickened and measures 5 mm in thickness, and is hyperechoic. There is no demonstrated endometrial mass. There is evidence of a 1.2 cm x 1.5 cm x 1 cm fundal fibroid. There is also evidence of a 6 mm x 6 mm x 5 mm posterior uterine fibroid. I.U.D. - The patient does not have an I.U.D. The right ovary is non-visualized. The left ovary is non-visualized. There is no fluid in the cul-de-sac. US/Transvaginal Non- IMPRESSION: Thickened endometrium. There are 2 small uterine fibroids. Electronically Signed: Kai Barksdale MD at 12:44 EST ,
== END | disposition home or self-care (01) ==
LOC: US 16:26
PROVIDERS: PCP Internal Medicine; Referring Provider Internal Medicine; Visit Provider Internal Medicine
DX: N95.0 Postmenopausal bleeding (principal)
CPT/HCPCS: 76830

== ENCOUNTER → 2024-07-22 | Outpatient (CLI) | payer OTHER, SELFPAY ==
--- NOTE | 2024-07-22 11:51 | BI_ITS ---
PROCEDURE: SCRN MAMM (CAD)W/ABDULAZIZ BILAT REASON FOR EXAM: F, Age 54 y/o, no family history. Routine mammogram. TECHNIQUE: Bilateral screening digital breast tomosynthesis with 2D and 3D images. Computer aided detection. COMPARISON: Prior exam(s) dating back to July 15, 2023.. FINDINGS: The breasts are heterogeneously dense which may obscure small masses. Stable small bilateral axillary lymph nodes. No suspicious masses, areas of developing architectural distortion, or suspicious calcifications. BI/SCRN MAMM (CAD)W/ABDULAZIZ BILAT IMPRESSION: BI-RADS 2: BENIGN. RECOMMEND ANNUAL MAMMOGRAPHIC SCREENING. Follow-up code: Routine Follow-up The patient will be notified of the results by letter. Reading Location: [place] [id number]
== END | disposition home or self-care (01) ==
LOC: OPBI 11:50
PROVIDERS: PCP Internal Medicine; Referring Provider Internal Medicine; Visit Provider Internal Medicine
DX: Z12.31 Encounter for screening mammogram for malignant neoplasm of breast (principal)
CPT/HCPCS: 77063; 77067

== ENCOUNTER 2024-08-03 11:32 | Day surgery (SDC) | payer OTHER, SELFPAY ==
[2024-07-22 15:01] LABS: Hematocrit 42.5 % (37-47); Hemoglobin 14.2 g/dL (12.0-15.0); Mean Corp Hgb Conc 33.4 g/dL (32-36); Mean Corpuscular Hgb 29.6 pg (27.0-32.0); Mean Corpuscular Volume 88.5 fL (81-99); Mean Platelet Vol. 10.3 fl (6.2-12.0); Platelet Count 317 K/mm3 (150-450); RBC Distribution Width CV 11.8 % (11.6-14.6); White Blood Count 9.1 K/mm3 (4.4-11.0)
[2024-08-03] VITALS (9 sets, daily range): BP systolic 103–121; BP diastolic 67–78; PULSE 75–81; RESP 14–18; TEMP 36.2–36.5; O2SAT 97–100; BMI 28.3
[2024-08-03 12:10] LABS: Internal QC Validated? YES +Cl - CLEAR BKGD; Pregnancy, Urine Negative Negative
--- NOTE | 2024-08-03 12:21 | PCM.HP.BLA ---
History and Physical Date of Admission: 08/03/24 Intake Vital Signs 07/02/2507:18 07/22/2512:47 07/22/2512:47 Height 5 ft 4 in 5 ft 4 in 5 ft 4 in Weight: 163 lb 2 oz 164 lb BMI 28.0 28.1 BP 138/79 H 122/80 H Intake Visit Reasons: hyst. 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 Is patient in pain?: No Allergies Penicillins Allergy (Verified 07/22/24 13:47) UnknownIodinated Contrast Media (CONTRASTS) Adverse Reaction (Verified 07/22/24 13:47) Hives Medications ?Medication ?Instructions ?Recorded ?Confirmed ?Type bupropion HCl 150 mg 24 hr tablet, 300 mg PO DAILY 11/30/18 07/22/24 History extended release propranolol 60 mg tablet 60 mg PO DAILY 11/30/18 07/22/24 History progesterone micronized 200 mg 200 mg PO QHS 07/02/24 07/22/24 History capsule rosuvastatin 20 mg tablet (Crestor) 40 mg PO DAILY 07/02/24 07/22/24 History semaglutide (weight loss) 1 mg/0.5 1 mg subcut Q7D 07/02/24 07/22/24 History mL subcutaneous pen injector (Wegovy) multivitamin (Daily Multi-Vitamin 1 tab PO DAILY 07/20/24 07/22/24 History tablet) Post menopausal: No Patient : No : No PFSH Medical History Wears hearing aid Wears glasses Post-menopausal Vasodilatation High cholesterol Non-smoker Surgical History Hx of colonoscopy S/P tonsillectomy and adenoidectomy History of myringotomy Family History Mother COPD (chronic obstructive pulmonary disease) Hypertension HyperlipidemiaFather Cancer Social History Smoking Status: Never smoker alcohol intake: never substance use type: does not use caffeine: Yes what type of physical activity do you participate in: walking frequency: 3-4 times per week seatbelt use: always do you feel safe at home: Yes additional social history: - Michael HPI hyst. D&C IUD insert Details: DU BURIANEK is a 54 year old ( one miscarriage and one twin vaginal delivery) who presents for pre-op exam for scheduled D&C placement of IUD due to thickened endometrium and postmenopausal bleeding. the ultrasound shows a 7.9 x 5.6 x 4.5 cm uterus with a 5mm endometrium and 2 small 1-2 cm fibroids in the myometrium. She has been using hormone pellets containing testosterone and estrogen and taking PO progesterone but stopped using them about 4 months ago. She experienced a full period recently and was sent to us for evaluation. She has been experiencing hair loss and memory problems. the hormones helped her memory but she states that it did not help, maybe even worsened her hair loss. History 2 Elective abortions Hx Para 1 Spontaneous abortions 1 Hx # Term Pregnancies Ectopic pregnancies Hx # Pregnancies Multiple births 1 # of living children 2 Past Pregnancies Del. Date Name GA/Weeks Outcome Route Bth Weight Infant Gen Labor Lgth Anesthesia Del Locatn Provider FOB Unknown Julita/Benjamin ROS Const ROS Unobtainable: All systems reviewed & are unremarkable except as noted in H Resp Resp: Reports system reviewed and no additional complaints, except as documented; Denies cough GI GI: Reports as per HPI Psych Psych: Reports system reviewed and no additional complaints, except as documented Exam Const General: cooperative, healthy appearing, comfortable and no acute distress Resp Effort & Inspection: normal respiratory effort Skin General: no rashes or lesions noted Psych Appearance: grossly normal Speech and Movement: speech and movement normal Coding Level of Care Code Off vis,est,level 4 Diagnoses Postmenopausal bleeding N95.0 Flushing R23.2 Mood disorder F39 Assessment and Plan Assessment and Plan (1) Postmenopausal bleeding: Status: Acute (2) Flushing: Status: Acute (3) Mood disorder: Status: Acute Orders: Orders CBC-Complete Blood Cnt No Diff Today N95.0 - Postmenopausal bleeding Type & Screen - PAT ONLY Today N95.0 - Postmenopausal bleeding Plan After discussing the patient's diagnosis and treatment plan options, patient wishes to proceed with surgical management. I have discussed with the patient the risks, benefits, and alternatives of the procedure which include but are not limited to risks of anesthesia, bleeding, infection, possible damage to bowel, bladder, or surrounding vasculature which could lead to additional surgery to evaluate any complications. Patient agrees to procedure and wishes to proceed. ACOG/uptodate references given for additional information regarding procedure. plan for hysteroscopy D&C placement of iud. stop semiglutide x 10 days prior cbc and type and screen today.
--- NOTE | 2024-08-03 12:43 | PCM.PRE.AN2 ---
ASA Classification* ASA Classification ASA Classification: 2 Assessment & Plan Anesthesia* Anesthesia Assessment Anesthesia Assessment: Discussed sedation and/or anesthesia options, risks, benefits, and alternatives with patient/parents/legal guardian/POA. Questions invited. The patient/parents/legal guardian/POA seems to understand and agrees to proceed with anesthesia plan. Reviewed the physical assessment, medical history, allergy history and patient home medications list prior to surgery/procedure/anesthetic and documented any changes. Performed airway and anesthesia risk assessments. Anesthesia Type Anesthesia Type: MAC History Source History Obtained from:: Patient and Chart Anesthesia Focused Assessment* Temperature: 97.2 F Pulse Rate: 81 Blood Pressure: 121/78 Respiratory Rate: 17 Pulse Ox: 100 Oxygen Delivery Method: Room Air Airway Assessment Mouth opens: >3 cm Mallampati Score: III Teeth Condition: Caps/Crowns (Patient has a couple crowns. They are tight.) Neck Range of motion (ROM): Full ROM Focused Labs Anesthesia Preop lab: CBC WBC 9.1 K/mm3 (4.4-11.0) 07/22/24 14:17 07/22/24 RBC 4.80 M/mm3 (4.2-5.4) 07/22/24 14:17 07/22/24 Hgb 14.2 g/dL (12.0-15.0) 07/22/24 14:17 07/22/24 Hct 42.5 % (37-47) 07/22/24 14:17 07/22/24 Plt Count 317 K/mm3 (150-450) 07/22/24 14:17 07/22/24 CHEMISTRY Potassium 3.9 mmol/L (3.5-5.1) 07/15/16 11:10 07/15/16 Sodium 140 mmol/L (136-145) 07/15/16 11:10 07/15/16 BUN 13 mg/dL (7-18) 07/15/16 11:10 07/15/16 Creatinine 0.78 mg/dL (0.55-1.02) 07/15/16 11:10 07/15/16 Glucose 90 mg/dL (70-110) 07/15/16 11:10 07/15/16 TSH 2.21 uIU/mL (0.358-3.74) 03/10/18 09:54 03/10/18 COAG Urine Test Negative Negative 08/03/24 11:50 08/03/24 Pre-Assessment Diagnosis/Proposed Procedure Planned Operative Procedure(s): Hysteroscopy,Dilation and Curettage, Intrauterine Device Insertion Anesthesia History Anesthesia History - superintendent operating: Anesthesia History - superintendent operating Hx Hospitalization No 07/20/24 15:04 Any Problems With Anesthesia No 07/20/24 15:04 Cholinesterase deficiency No 07/20/24 15:04 You/Your Family Experience No 07/20/24 15:04 fever (hyperthermia) with Relationship Recent Exposure to Contagious No 08/03/24 12:06 Disease Does patient have nerve No 07/20/24 15:04 stimulator Patient instructed to have device shut off --Does patient have Pacemaker No 08/03/24 12:06 or ICD? When Was Last Pacemaker Check QUESTION #4 FULL TEXT: You/Your Family Experience fever (hyperthermia) with Anesthesia Last Oral Intake Last Oral intake: Last Oral Intake NPO since 09:00 08/03/24 12:06 Meds taken in AM with sips of No 08/03/24 12:06 water? Meds patient instructed to take am of surgery Any additional information?: Yes Meds taken in AM with sips of water?: Yes PONV PONV - superintendent operating: PONV - superintendent operating Female Yes 07/20/24 15:04 HX of Motion Sickness Yes 07/20/24 15:04 HX of N/V After Surgery No 07/20/24 15:04 Non-Smoker Yes 07/20/24 15:04 Duration of Surgery greater No 07/20/24 15:04 than 60 minutes Number of Risk Factors 3 07/20/24 15:04 PONV Score Moderate Risk 07/20/24 15:04 Height & Weight Height & Weight: Anesthesia: Height & Weight Height 5 ft 4 in 08/03/24 12:06 Weight: 75 kg 08/03/24 12:06 Body Mass Index (BMI) 28.3 08/03/24 12:06 Respiratory Assessment Respiratory Assessment - superintendent operating: Respiratory Tract Infection Hx - superintendent operating Hx Respiratory Tract Infection No 07/20/24 15:04 STOP Sleep Apnea STOP Sleep Apnea - superintendent operating: STOP Sleep Apnea - superintendent operating Hx Hypertension No 07/20/24 15:04 Hx Sleep Apnea No 07/20/24 15:04 CPAP No 07/20/24 15:04 BIPAP Do you snore loudly (louder No 07/20/24 15:04 than talking or can be heard Do you often feel tired/ No 07/20/24 15:04 fatigued/ sleepy during daytime? Has anyone observed you stop No 07/20/24 15:04 breathing during sleep? STOP Results Negative 07/20/24 15:04 QUESTION #5 FULL TEXT : Do you snore loudly (louder than talking or can be heard through closed doors)? Tobacco Use History Tobacco Use History - superintendent operating: Tobacco Use History - superintendent operating Tobacco Use Smoking Status Never smoker 07/20/24 15:04 Hx Tobacco Use No 07/20/24 15:04 Years Smoking Packs Smoked per Day Smoking Cessation Date was within the last 15 years Hx Smoking Cessation Date Hx Smoking Cessation Counseling Hematologic Medial History Hematologic Hx - superintendent operating: Hematologic Medical Hx - anesthesia director Hx of Blood Transfusion No 07/20/24 15:04 Hx of Transfusion in last 3 No 07/20/24 15:04 Months Date of Last Transfusion (if within last 3 months) Ever experience any problems No 07/20/24 15:04 with transfusion(s)? Specify any problems Hx of Preganancy in last 3 No 07/20/24 15:04 Months Nurse Filling Out Transfusion VCHRISTIN 07/20/24 15:04 & Questions: Date: 07/20/24 07/20/24 15:04 Time: 15:05 07/20/24 15:04 Patient unable to answer at this time (ie. confused, unrespo /Reproduction History /Reproductive History - superintendent operating: /Reproductive Hx- superintendent operating Hx Now No 07/20/24 15:04 Gestational Age (in weeks): EDC: Hx Hx Para Hx Section SAB No 07/22/24 13:47 Active Medications Active Medications: Current Medications Generic Name Dose Route Start Last Admin Trade Name Freq PRN Reason Stop Dose Admin Levonorgestrel 1 each 08/03/24 13:35 Levonorgestrel Iud (Liletta) INTRA-UTER 08/03/24 13:36 X1 ONE PFSH Medical History Wears hearing aid Wears glasses Post-menopausal Vasodilatation High cholesterol Non-smoker Home Medications ?Medication ?Instructions ?Recorded ?Last Taken ?Type bupropion HCl 150 mg 24 hr tablet, 300 mg PO DAILY 11/30/18 08/02/24 History extended release propranolol 60 mg tablet 60 mg PO DAILY 11/30/18 08/03/24 History progesterone micronized 200 mg 200 mg PO QHS 07/02/24 08/02/24 History capsule rosuvastatin 20 mg tablet (Crestor) 40 mg PO DAILY 07/02/24 08/02/24 History semaglutide (weight loss) 1 mg/0.5 1 mg subcut Q7D 07/02/24 07/08/24 History mL subcutaneous pen injector (Wegovy) Held on 08/03/24. Instructions: for surgery multivitamin (Daily Multi-Vitamin 1 tab PO DAILY 07/20/24 08/02/24 History tablet) Allergy/AdvReac Type Severity Reaction Status Date / Time Penicillins Allergy Unknown Verified 08/03/24 12:06 Iodinated Contrast Media AdvReac Hives Verified 08/03/24 12:06 (CONTRASTS) Family History Mother COPD (chronic obstructive pulmonary disease) Hypertension Hyperlipidemia Father Cancer Surgical History Hx of colonoscopy S/P tonsillectomy and adenoidectomy History of myringotomy Social History Smoking Status: Never smoker alcohol intake: never substance use type: does not use caffeine: Yes what type of physical activity do you participate in: walking frequency: 3-4 times per week seatbelt use: always do you feel safe at home: Yes additional social history: - Michael Review of Systems (Anesthesia) ROS Narrative System reviewed and no additional complaints, except as documented.
--- NOTE | 2024-08-03 13:22 | DCINST_ITS ---
Discharge Instructions Diet Discharge Diet: No restrictions DC O2, CPAP, BIPAP needs Home O2 Discharge instructions: No Dressing / Incision Discharge Activity: Return to Normal Activity, May Shower and May Take a Tub Bath (after 1 week) May resume sexual activity in: 1-2 weeks Weight Bearing Status: Weight bearing as tolerated Lifting Restrictions: none Dressing / Incision Call your doctor if you observe: Fever of 101 or Higher, Using more than 1 pad per hour, Shortness of breath and Uncontrolled pain Follow Up Care Please Follow Up With: Maria Elena Mustafa DO When: Call [phone] to schedule appointment. Test Results: Test results from this visit will be discussed in further detail at your follow- up appointment, if applicable. Discharge Plan Admission Attending Provider: Maria Elena Mustafa Primary Care Provider: Cristy Escobedo Instructions Print Language: Mauritian Discharge Orders/Prescriptions Prescriptions: No Action progesterone micronized 200 mg capsule 200 mg PO QHS Wegovy 1 mg/0.5 mL pen injector 1 mg subcut Q7D rosuvastatin [Crestor] 20 mg tablet 40 mg PO DAILY propranolol 60 MG capsule 60 mg PO DAILY Patient Comments: TAKES FOR SKIN FLUSHING bupropion HCl 150 MG tablet extended release 24 hr 300 mg PO DAILY multivitamin [Daily Multi-Vitamin] Tablet 1 tab PO DAILY Referrals / Follow Up: Cristy Escobedo MD [Primary Care Provider] - Disposition Disposition (needs filled in before D/C Order can be placed): Home, Self Care
--- NOTE | 2024-08-03 13:35 | EMB_PTH ---
PATIENT: DU SWANSON LOC: [facility] [place] U#:[id number] AGE/SX: 54/F ROOM: RE08/03/[address]: Dr. Maria Elena Mustafa DO : 1970 BED: DIS: 08/03/2024 SPEC #: [id number] RECD: 08/03/24 17:02 STATUS: RICHARD DASMani #: [id number] RAMIREZ: 08/03/24 13:[address]: Maria Elena Mustafa DEPT: SURGICAL PATHOLOGY RECD BY: Nohemi Baker ENTERED: 08/04/24 08:40 SP TYPE: ENDOM BX/C OTHR DR: Dr. Cristy Escobedo MD Tissues: Endometrium, NOS Procedures: Surgery Specimen Level IV HEADER OPERATION: Hysteroscopy, dilation and curettage PRE-OP DIAGNOSIS: Postmenopausal bleeding, flushing TISSUE SUBMITTED: Endometrial curettings MICROSCOPIC DIAGNOSIS Endometrial curettings: Weakly proliferative endometrium. A polypoid fragment of endometrial tissue may represent a fragment of benign endometrial polyp. Fragments of benign ecto- and endocervical mucosa and mucous. See comment. 08/05/2024 COMMENT The specimen predominantly consists of mucoid tissue. MICROSCOPIC DESCRIPTION Slides are reviewed. GROSS DESCRIPTION Received in fixative is one container labeled with the patient's name and designated Endometrial curettings. The specimen consists of multiple irregular fragments of hemorrhagic mucoid tissue that in aggregate measure 2.5 x 2.5 x 0.5 cm. One of the fragments consists of polypoid mucoid tissue. The specimen is totally submitted in one cassette. 08/04/2024 TC:5 CPT:32984
[2024-08-03] MEDS: Lidocaine 1% (30 ml sdv) 30 ML Vial (14:00)
[2024-08-03] MEDS: Levonorgestrel IUD (Liletta) 1 EACH INTRA-UTER (14:06)
--- NOTE | 2024-08-03 14:21 | OP.PCM_ITS ---
Problems Associated Problem List Diagnoses (1) Postmenopausal bleeding: Multi Select Codes Urinary/Genital Urinary/Genital CPT Codes: 12999 Hysteroscopy,EMC, Polypectomy and Other Procedure See Report (placement of progesterone IUD. ) Operative Report (Standard) Operative Information Date of Procedure: 08/03/24 Pre-Operative Diagnosis: postmenopausal bleeding Post-Operative Diagnosis: postmenopausal bleeding Surgery/Procedure Performed: hysteroscopy dilation and curettage, placement of intrauterine device bilingual inside sales representative: No Type of Anesthesia: Local MAC RN Documented Start/Stop Times: Operation Date: 08/03/24 13:35 Case Time Into Pre-Op 08/03/24 11:36 Out of Pre-Op 08/03/24 13:39 Anesthesia Start 08/03/24 13:43 Into Room 08/03/24 13:43 Procedure Start 08/03/24 14:01 Procedure End 08/03/24 14:09 Anesthesia End 08/03/24 14:15 Out of Room 08/03/24 14:15 Into Recovery 08/03/24 14:19 Procedure Start Time: 14:01 Procedure Stop Time: 14:09 Select all DRAINS/GRAFTS/IMPLANTS that apply: None Estimated Blood Loss: 5cc Specimen collected: Yes Description of specimen(s) removed: endometrial curetting's Description of surgery: Patient was prepped and draped in a normal sterile fashion under MAC anesthesia. A weighted speculum was placed in the vagina and the anterior lip of the cervix was grasped with a single-tooth tenaculum. A paracervical block was placed with 1% lidocaine. Cervix was progressively dilated to allow passage of a 5 mm hysteroscope. The lining was fully visualized and noted to have a thin lining without mass or polyps . The uterus sounded to 9 cm and retroverted. Curettage was performed and scant tissue and mucus was collected and sent to pathology. Next, the Liletta progesterone IUD was inserted into the uterus in the usual manner. All instruments were removed from the vagina and excellent hemostasis was noted. Patient was awoken and taken to recovery in stable condition. Surgical Findings: atrophic endometrium, retroverted Complications Complications: No Admit VTE Documentation VTE Present on Admission: No VTE Mechan Device Prophylaxis: SCD's VTE Pharm Prophylaxis ordered?: No
[2024-08-03] MEDS: Ketorolac 30 MG/ML Syringe IV (14:35)
--- NOTE | 2024-08-03 15:05 | PCM.POST.ANE ---
Anesthesia: Postop Eval I Current Vital Signs Temperature: 97.2 F Pulse Rate: 77 Blood Pressure: 120/74 Respiratory Rate: 14 Pulse Ox: 98 Oxygen Delivery Method: Room Air Assessment Airway patent: Yes Spontaneous unlabored respirations: Yes Mental status: Awake and Calm nausea: No Vomiting: No Anesthesia Complication: No Fluid Hydration Crystalloid volume administer (ml): 30 Total IV fluid infused: 30 Progress Note Anesthesia document: Postop Eval 1 completed: Yes
--- NOTE | 2024-08-03 18:58 | POSTOPAN2_ITS ---
Anesthesia Postop Eval I Sum Postop Eval Completion status Anesthesia document: Postop Eval 1 completed: Yes Anesthesia Postop Eval I Summary Anesthesia Postop Eval I Summary: Anesthesia Postop Eval I: Assessment Summary Airway patent Yes 08/03/24 15:06 [email or web address] Spontaneous unlabored Yes 08/03/24 15:06 [email or web address] respirations Mental status Awake,Calm 08/03/24 15:06 [email or web address] nausea No 08/03/24 15:06 [email or web address] Vomiting No 08/03/24 15:06 [email or web address] Anesthesia Postop Eval I: Fluid Summary Crystalloid volume administer 30 08/03/24 15:06 [email or web address] (ml) Colloids volume administered ( ml) Blood Product volume administered (ml) Total IV fluid infused 30 08/03/24 15:06 [email or web address] Anesthesia Postop Eval I: Summary Notes Anesthesia Complication No 08/03/24 15:06 [email or web address] Anesthesia Complication Comment: Post-operative progress note Anesthesia: Postop Eval II Evaluation Mental status: Awake and Calm Pain Level: 1 nausea: No Vomiting: No Complications Anesthesia Complication: No
--- NOTE | 2024-08-03 18:58 | PCM.POSTANE2 ---
Anesthesia Postop Eval I Sum Postop Eval Completion status Anesthesia document: Postop Eval 1 completed: Yes Anesthesia Postop Eval I Summary Anesthesia Postop Eval I Summary: Anesthesia Postop Eval I: Assessment Summary Airway patent Yes 08/03/24 15:06 ENGINEERING TEST [email or web address].[email or web address] Spontaneous unlabored Yes 08/03/24 15:06 ENGINEERING TEST [email or web address].[email or web address] respirations Mental status Awake,Calm 08/03/24 15:06 ENGINEERING TEST [email or web address].[email or web address] nausea No 08/03/24 15:06 ENGINEERING TEST [email or web address].[email or web address] Vomiting No 08/03/24 15:06 ENGINEERING TEST [email or web address].[email or web address] Anesthesia Postop Eval I: Fluid Summary Crystalloid volume administer 30 08/03/24 15:06 ENGINEERING TEST [email or web address].[email or web address] (ml) Colloids volume administered ( ml) Blood Product volume administered (ml) Total IV fluid infused 30 08/03/24 15:06 ENGINEERING TEST [email or web address].[email or web address] Anesthesia Postop Eval I: Summary Notes Anesthesia Complication No 08/03/24 15:06 ENGINEERING TEST [email or web address].[email or web address] Anesthesia Complication Comment: Post-operative progress note Anesthesia: Postop Eval II Evaluation Mental status: Awake and Calm Pain Level: 1 nausea: No Vomiting: No Complications Anesthesia Complication: No
== END 2024-08-03 15:02 | disposition home or self-care (01) ==
LOC: SDC 11:34 → AC 11:35
PROVIDERS: PCP Internal Medicine; Referring Provider Obstetrics & Gynecology; Visit Provider Obstetrics & Gynecology
PROC: 0UDB8ZZ Extraction of Endometrium, Via Natural or Artificial Opening Endoscopic (ICD-10-PCS; CPT 58558; principal; 2024-08-03 13:25)
DX: N95.0 Postmenopausal bleeding (principal); D25.9 Leiomyoma of uterus, unspecified; R41.3 Other amnesia; F39 Unspecified mood [affective] disorder; E78.00 Pure hypercholesterolemia, unspecified; N85.8 Other specified noninflammatory disorders of uterus; L65.9 Nonscarring hair loss, unspecified; R23.2 Flushing
CPT/HCPCS: 58558; 58300; 00952; 36415; 81025; 85027; 86850; 86900; 86901; 88305; A4216; J2405

== ENCOUNTER → 2025-05-03 | Outpatient (CLI) | payer OTHER, SELFPAY ==
[2025-05-03 15:24] LABS: Hematocrit 42.2 % (37-47); Hemoglobin 13.8 g/dL (12.0-15.0); Immature Granulocytes Count 0.030 X10^3/uL (0.0-0.0); Mean Corp Hgb Conc 32.7 g/dL (32-36); Mean Corpuscular Volume 88.8 fL (81-99); Mean Platelet Vol. 10.8 fl (6.2-12.0); NRBC Flagged by Analyzer 0 % (0-5); Platelet Count 306 K/mm3 (150-450); RBC Distribution Width CV 12.0 % (11.6-14.6); RBC Distribution Width SD 38.9 fl (35.1-43.9); Red Blood Count 4.75 M/mm3 (4.2-5.4); White Blood Count 8.1 K/mm3 (4.4-11.0)
[2025-05-03 16:13] LABS: AST(SGOT) 21 U/L (<=31); Alanine Aminotransfer ALT/SGPT 19 U/L (<=34); Albumin, Serum 4.2 g/dL (3.5-5.0); Alkaline Phosphatase 61 U/L (35-104); Anion Gap 10 (5-15); BUN 18 mg/dL (4-19); BUN/Creat Ratio 23.3 RATIO (10-20); Calcium,Total 9.2 mg/dL (7.6-11.0); Carbon Dioxide 24.2 mmol/L (21.0-32.0); Chloride 105 mmol/L (98-108); Ferritin 107 ng/mL (22-378); Free T3 2.9 pg/mL (2.18-3.98); Globulin 2.6 g/dL (2.2-4.2); Glucose 122 mg/dL (70-99); Potassium 4.2 mmol/L (3.3-5.1); Vitamin B12 1089 pg/mL (180-914)
[2025-05-03 16:47] LABS: Iron 93 ug/dL (50-170)
[2025-05-03 17:18] LABS: FOLATES,SERUM (FOLIC ACID) 11.00 ng/mL (4.60-34.80)
[2025-05-09 16:09] LABS: ANTINUCLEAR ANTIBODIES DIRECT Negative (Negative); HOMOCYSTEINE 8.4 umol/L (0.0-14.5); Methylmalonic Acid Bld 172 nmol/L (0-378)
[2025-05-09 17:08] LABS: Folate, Hemolysate Test 461.0 ng/mL (Not Estab.); Folate, RBC (Hct) Test 41.5 % (34.0-46.6); Folates, RBC Test 1111 ng/mL (>498); PROLACTIN 7.8 ng/mL (3.6-25.2); Zinc, Plasma or Serum 70 ug/dL (44-115)
== END | disposition home or self-care (01) ==
LOC: CIMLAB 13:34
PROVIDERS: PCP Internal Medicine; Referring Provider Internal Medicine; Visit Provider Internal Medicine
DX: L65.9 Nonscarring hair loss, unspecified (principal)
CPT/HCPCS: 36415; 80053; 82607; 82627; 82728; 82746; 82747; 83090; 83540; 83921; 84146; 84402; 84439; 84443; 84481; 84630; 85014; 85025; 86038; 82626